=== PATIENT | female | born 1935 | race Caucasian/White ===

== ENCOUNTER → 2017-07-12 | Day surgery (SDC) | payer MEDICARE, OTHER ==
[~2017-07-12] MED LIST: ALPRAZolam 0.25 MG TAB PO STA; MORPHINE SULFATE 4 MG/ML SYRINGE IVP PRN
[2017-07-12 09:29] LABS: Mean Platelet Volume 7.6; Platelet Count 183 k/uL (150-450)
[2017-07-12 09:54] LABS: INR 1.1 (<1.2); Prothrombin Time 10.5 sec (9.0-12.0)
[2017-07-12 11:24] VITALS: RESP 18
[2017-07-12 14:13] VITALS: TEMP 97.8
--- NOTE | 2017-07-12 14:17 | US ---
EXAMINATION TYPE: US biopsy liver DATE OF EXAM: 07/12/2017 HISTORY: Liver mass. FINDINGS: Maximal barrier technique was utilized. The skin overlying a suitable path to the patient' s mass was localized with ultrasound and the overlying skin prepped and draped. Ultrasound was utili zed with sterile technique. Lidocaine was used for local anesthesia. A skin kevyn was made with a sc alpel. An 18-gauge needle was advanced under direct ultrasound guidance and core specimen obtained o f the mass. Specimen submitted in formalin to Pathology. Following the procedure, hemostasis achiev ed and the patient is discharged in stable condition without complication. IMPRESSION:STATUS POST ULTRASOUND GUIDED CORE BIOPSY OF right lobe liver MASS, PATHOLOGY IS PENDING. THIS PROCEDURE IS PERFORMED BY THE UNDERSIGNED.
[2017-07-12 15:11] VITALS: BP 129/84; PULSE 62
== END ==
LOC: RADPROMAIN 08:44
PROVIDERS: ATTEND Internal Medicine Gastroenterology
DX: K74.60 Unspecified cirrhosis of liver (principal)
CPT/HCPCS: 85049; 85610; 88313; 88342; 88307; 88341; 96374; 36415; 47000; 76942; J2270

== ENCOUNTER 2018-06-25 08:32 | Inpatient (IN) | payer MEDICARE, OTHER ==
--- NOTE | 2018-06-25 09:08 | ED ---
GI Bleed HPI - General Chief complaint: GI Bleed Stated complaint: GI BLEED Time Seen by Provider: 06/25/18 08:38 Source: patient, RN notes reviewed, old records reviewed Mode of arrival: EMS Limitations: no limitations - History of Present Illness Initial comments: Following and there is an 83-year-old female with a history of liver cancer presents emergency department today as a transfer from [facility]. Patient was initially seen at [facility] for dizziness and nausea and lightheadedness. Patient was found to have a GI bleed with a positive guaiac test and a low hemoglobin of 7.8. Patient has a history of CVA, hypertension as well. She has a loop recorder. At this time Patient has a 30 received 1 unit of blood. She denies any pain. She denies any hematemesis or known melena. Patient reports that she sees Dr. ventura leukemia a oncologist at [facility]. She reports that she is essentially very close to being done with her cancer treatment. She is supposed to do radiation therapy. - Related Data Home Medications Medication Instructions Recorded Confirmed Gabapentin [Neurontin] 200 mg PO BID 03/12/17 06/25/18 Lisinopril [Zestril] 20 mg PO HS 03/12/17 06/25/18 Omeprazole 20 mg PO DAILY 03/12/17 06/25/18 Orphenadrine [Norflex] 100 mg PO DAILY 03/12/17 06/25/18 hydrALAZINE HCL 10 mg PO BID 03/12/17 06/25/18 Aspirin EC [Ecotrin Low Dose] 81 mg PO DAILY 06/25/18 06/25/18 Atorvastatin [Lipitor] 40 mg PO HS 06/25/18 06/25/18 Chlorthalidone [Hygroton] 25 mg PO DAILY 06/25/18 06/25/18 Clopidogrel [Plavix] 75 mg PO DAILY 06/25/18 06/25/18 LORazepam [Ativan] 0.5 mg PO BID PRN 06/25/18 06/25/18 Ondansetron [Zofran] 4 mg PO Q6H PRN 06/25/18 06/25/18 amLODIPine [Norvasc] 5 mg PO DAILY 06/25/18 06/25/18 sitaGLIPtin [Januvia] 50 mg PO DAILY 06/25/18 06/25/18 Allergies Allergy/AdvReac Type Severity Reaction Status Date / Time Penicillins Allergy Mild Rash/Hives Verified 06/25/18 09:05 codeine AdvReac Intermediate Confusion Verified 06/25/18 09:05 Review of Systems ROS Statement: Those systems with pertinent positive or pertinent negative responses have been documented in the HPI. ROS Other: All systems not noted in ROS Statement are negative. Past Medical History Past Medical History: Diabetes Mellitus, GERD/Reflux, Hypertension Additional Past Medical History / Comment(s): Cyst in right kidney, kidney stones. 2 lesions on liver, cirrhosis, steatosis History of Any Multi-Drug Resistant Organisms: None Reported Past Surgical History: Appendectomy, Cholecystectomy, Hysterectomy, Orthopedic Surgery Additional Past Surgical History / Comment(s): Left knee surgery, liver biospy 04/02 Past Anesthesia/Blood Transfusion Reactions: No Reported Reaction Past Psychological History: No Psychological Hx Reported Smoking Status: Current every day smoker Past Drug Use History: None Reported - Past Family History Mother Family Medical History: Hypertension Father Family Medical History: COPD General Exam - General Exam Comments Initial Comments: A pleasant alert and oriented 83-year-old female. No significant distress. Limitations: no limitations General appearance: alert, in no apparent distress Head exam: Present: atraumatic, normocephalic, normal inspection Eye exam: Present: normal appearance, PERRL, EOMI. Absent: scleral icterus, conjunctival injection, periorbital swelling ENT exam: Present: normal exam, mucous membranes moist Neck exam: Present: normal inspection. Absent: tenderness, meningismus, lymphadenopathy Respiratory exam: Present: normal lung sounds bilaterally. Absent: respiratory distress, wheezes, rales, rhonchi, stridor Cardiovascular Exam: Present: regular rate, normal rhythm, normal heart sounds. Absent: systolic murmur, diastolic murmur, rubs, gallop, clicks GI/Abdominal exam: Present: soft, normal bowel sounds. Absent: distended, tenderness, guarding, rebound, rigid Rectal exam: Present: heme (+) stool, hemorrhoids (2 hemorrhoids.) Extremities exam: Present: normal inspection, full ROM, normal capillary refill. Absent: tenderness, pedal edema, joint swelling, calf tenderness Back exam: Present: normal inspection Neurological exam: Present: alert, oriented X3, CN II-XII intact Psychiatric exam: Present: normal affect, normal mood Skin exam: Present: warm, dry, intact, normal color. Absent: rash Course Vital Signs 06/25/18 06/25/18 08:50 09:50 Temperature 97.9 F 98.0 F Pulse Rate 85 81 Respiratory 18 18 Rate Blood Pressure 155/79 152/75 O2 Sat by Pulse 96 96 Oximetry Medical Decision Making - Medical Decision Making 83-year-old female presents as transfer from her [facility]. She complained of dizziness lightheadedness. She was found to be having symptomatic anemia. Her color is positive however she does have hemorrhoids. She denies any significant melena or hematochezia. She also has a history of liver cancer. She is complaining of any pain at this time. Her hemoglobin was 7.8. One unit of blood. She has no complaints no vomiting or no stools in the ER. Patient's case discussed with Dr. Issac Wagner discussed the case with Dr. Covington who except admission. Patient will have a repeat CBC. Disposition Clinical Impression: Anemia, GI bleed, Dizziness Disposition: ADMITTED IP TO THIS [facility] Condition: Good Instructions (If sedation given, give patient instructions): Gastrointestinal Bleeding (ED) Is patient prescribed a controlled substance at d/c from ED?: No Referrals: Ryley Styles MD [Primary Care Provider] - 1-2 days Time of Disposition: 12:27
[2018-06-25] MEDS ORDERED: HYDROmorphone 0.5 MG/0.5 ML SYRINGE IVP PRN (12:28)
[2018-06-25] MEDS ORDERED: HYDROmorphone 1 MG/ML 1 ML SYRINGE IVP PRN (12:28)
[2018-06-25] MEDS ORDERED: NALOXONE 0.4 MG/ML 1 ML VIAL IV PRN (12:28)
[2018-06-25 12:30] LABS: Anisocytosis Slight; Basophils % (A) 1 %; Eosinophils # (A) 0.1 k/uL (0-0.7); Eosinophils % (A) 3 %; HCT 27.1 % (34.0-46.0); HGB 8.1 gm/dL (11.4-16.0); Hypochromasia Marked; Lymphocytes # (A) 0.4 k/uL (1.0-4.8); Lymphocytes % (A) 14 %; MCH 23.7 pg (25.0-35.0); MCHC 29.7 g/dL (31.0-37.0); MCV 79.8 fL (80.0-100.0); Mean Platelet Volume 7.4; Monocytes # (A) 0.3 k/uL (0-1.0); Monocytes % (A) 9 %; Neutrophils % (A) 69 %; Platelet Count 232 k/uL (150-450); Poikilocytosis Slight; RDW 16.3 % (11.5-15.5); WBC 2.9 k/uL (3.8-10.6)
[2018-06-25] MEDS ORDERED: ONDANSETRON 4 MG TAB PO PRN (12:31)
[2018-06-25 12:58] LABS: Anion Gap 8 mmol/L; Blood Urea Nitrogen 10 mg/dL (7-17); Calcium 9.6 mg/dL (8.4-10.2); Carbon Dioxide 22 mmol/L (22-30); Chloride 111 mmol/L (98-107); Glucose 126 mg/dL (74-99); Potassium 4.1 mmol/L (3.5-5.1); Sodium 141 mmol/L (137-145)
[2018-06-25] MEDS: SODIUM CHLORIDE 0.9% 1,000 ML IV SCH (15:01)
[2018-06-25 15:24] VITALS: BMI 31.0
--- NOTE | 2018-06-25 17:03 | P.HPIM ---
History of Present Illness Chief Complaint: GI bleed Very pleasant 83-year-old female past medical history significant for liver cancer on treatment at [facility] comes in to the ER as a transfer from [facility]. Patient apparently presented to [facility] for dizziness and nausea. He said that she's been having dizziness and nausea for since February when the treatment was started but at this time she was having more episodes of dizziness. That's why she went to the [facility]. There are fecal occult blood test which was positive. Her hemoglobin was found to be 7.8 that is why she was transferred to [facility] for further urology management. Patient says that she is on aspirin and Plavix for history of CVA. She otherwise does not complain of any chest pain, racing heart, no cough no shortness of breath, no abdominal pain, no vomiting, no diarrhea constipation, no tingling numbness of his extremities, no itch or rash ER course-temperature 97.9 pulse 85 respiration 18 blood pressure 155/79 satting 96%. Patient had lab work done which showed WBC 2.9 hemoglobin 8.1 platelets 232 sodium 141 potassium 4.1 BUN 10 creatinine 0.67. Patient was admitted to the hospitalist service for further evaluation and management Review of Systems All systems: negative Past Medical History Past Medical History: Cancer, CVA/TIA, Diabetes Mellitus, GERD/Reflux, Hypertension Additional Past Medical History / Comment(s): Cyst in right kidney, kidney stones. 2 lesions on liver, cirrhosis, steatosis History of Any Multi-Drug Resistant Organisms: None Reported Past Surgical History: Appendectomy, Back Surgery, Cholecystectomy, Hysterectomy , Orthopedic Surgery, Pacemaker Additional Past Surgical History / Comment(s): Left knee surgery, liver biospy 04/02, loop recorder placed about one year ago. Past Anesthesia/Blood Transfusion Reactions: No Reported Reaction Type of Cardiac Device: Loop Device Placement Date:: 12/15/2017 Past Psychological History: No Psychological Hx Reported Smoking Status: Former smoker Additional Past Alcohol Use History / Comment(s): quit one year ago. Past Drug Use History: None Reported - Past Family History Mother History Unknown: Yes Family Medical History: Hypertension Father History Unknown: Yes Family Medical History: COPD Medications and Allergies Home Medications Medication Instructions Recorded Confirmed Type Gabapentin [Neurontin] 200 mg PO BID 03/12/17 06/25/18 History Lisinopril [Zestril] 20 mg PO HS 03/12/17 06/25/18 History Omeprazole 20 mg PO DAILY 03/12/17 06/25/18 History Orphenadrine [Norflex] 100 mg PO DAILY 03/12/17 06/25/18 History hydrALAZINE HCL 10 mg PO BID 03/12/17 06/25/18 History Aspirin EC [Ecotrin Low Dose] 81 mg PO DAILY 06/25/18 06/25/18 History Atorvastatin [Lipitor] 40 mg PO HS 06/25/18 06/25/18 History Chlorthalidone [Hygroton] 25 mg PO DAILY 06/25/18 06/25/18 History Clopidogrel [Plavix] 75 mg PO DAILY 06/25/18 06/25/18 History LORazepam [Ativan] 0.5 mg PO BID PRN 06/25/18 06/25/18 History Ondansetron [Zofran] 4 mg PO Q6H PRN 06/25/18 06/25/18 History amLODIPine [Norvasc] 5 mg PO DAILY 06/25/18 06/25/18 History sitaGLIPtin [Januvia] 50 mg PO DAILY 06/25/18 06/25/18 History Allergies Allergy/AdvReac Type Severity Reaction Status Date / Time Penicillins Allergy Mild Rash/Hives Verified 06/25/18 09:05 codeine AdvReac Intermediate Confusion Verified 06/25/18 09:05 Physical Exam Vitals: Vital Signs Temp Pulse Pulse Resp BP BP Pulse Ox 06/25/18 14:20 98.0 F 73 16 168/76 95 06/25/18 14:00 97.8 F 72 18 131/80 97 06/25/18 11:00 81 18 96 06/25/18 09:50 98.0 F 81 18 152/75 96 06/25/18 08:50 97.9 F 85 18 155/79 96 Intake and Output 06/25/18 06/25/18 06/25/18 06:59 14:59 22:59 Other: Weight 72.121 kg On exam, alert and oriented x3. HEENT: Conjunctivae normal. eyes normal. NECK: No JVD. No thyroid enlargement. No LNs CARDIOVASCULAR: S1, S2 positive RESPIRATION: Breath sounds diminished in the bases. No rhonchi or crackles. No bronchial breathing. ABDOMEN: Soft, nontender . No guarding. no masses palpable. No ascites, No hepatosplenomegaly.Bowel sounds heard. LEGS: No edema. no swelling NERVOUS SYSTEM: Cranial N 2-12 grossly normal. Moves all 4 limbs. No focal deficits. No sensory deficit. No signs of cerebellar dysfucntion. Skin: no ulcer no rash Joints: No active swelling. No inflammation. Lymphatic system. No LN neck axilla or groin. Results CBC & Chem 7: 06/25/18 12:16 06/25/18 12:16 Labs: Abnormal Lab Results - Last 24 Hours (Table) 06/25/18 06/25/18 Range/Units 12:16 12:16 WBC 2.9 L (3.8-10.6) k/uL RBC 3.40 L (3.80-5.40) m/uL Hgb 8.1 L (11.4-16.0) gm/dL Hct 27.1 L (34.0-46.0) % MCV 79.8 L (80.0-100.0) fL MCH 23.7 L (25.0-35.0) pg MCHC 29.7 L (31.0-37.0) g/dL RDW 16.3 H (11.5-15.5) % Lymphocytes # 0.4 L (1.0-4.8) k/uL Chloride 111 H (98-107) mmol/L Glucose 126 H (74-99) mg/dL Thrombosis Risk Factor Assmnt - Choose All That Apply Any of the Below Risk Factors Present?: Yes Each Factor Represents 1 point: Obesity (BMI >25) Each Risk Factor Represents 3 Points: Age 75 years or older Thrombosis Risk Factor Assessment Total Risk Factor Score: 4 Thrombosis Risk Factor Assessment Level: Moderate Risk Assessment and Plan Assessment: Assessment - Anemia hemoglobin is 8.1. We don't know the baseline as of now - GI bleed - Lightheadedness and dizziness due to above - History of hemorrhoids as per the patient - History of CVA on aspirin and Plavix - History of liver cancer - History of hypertension - History of hyperlipidemia - History of diabetes Plan - We'll admit the patient MedSurg with telemetry - Patient will be nothing by mouth after midnight - GI has been consulted - We'll hold on aspirin and Plavix for now - Hemoglobin check to 8 hours - She apparently got 1 unit of blood transfusion with transfusion his hemoglobin less than 7 - DVT and GI prophylaxis - We'll order for lab work in the morning - Expected length of stay more than 2 midnights - Patient is full code Time with Patient: Greater than 30
[2018-06-25 17:25] LABS: Glucose,Whole Blood 111 mg/dL (75-99)
[2018-06-25] MEDS: INSULIN ASPART (NovoLOG) 100 UNIT/ML VIAL SQ SCH ×2 (17:42→20:20)
[2018-06-25] MEDS: LISINOPRIL 20 MG TAB PO SCH (20:18)
[2018-06-25] MEDS: ATORVASTATIN 40 MG TAB PO SCH (20:18)
[2018-06-25] MEDS: PANTOPRAZOLE 40 MG/10 ML VIAL IV SCH (20:18)
[2018-06-25] MEDS: hydrALAZINE HCL 10 MG TAB PO SCH (20:18)
[2018-06-25] MEDS: GABAPENTIN 100 MG CAP PO SCH (20:20)
[2018-06-25] MEDS: LORazepam 0.5 MG TAB PO PRN (20:23)
[2018-06-25 20:35] LABS: Glucose,Whole Blood 129 mg/dL (75-99)
[2018-06-25 23:48] LABS: Hemoglobin A1C 6.3 % (4.0-6.0)
[2018-06-26] MEDS: SODIUM CHLORIDE 0.9% 1,000 ML IV SCH ×4 (02:51→21:55)
[2018-06-26 07:22] LABS: Glucose,Whole Blood 105 mg/dL (75-99)
[2018-06-26] MEDS: INSULIN ASPART (NovoLOG) 100 UNIT/ML VIAL SQ SCH ×4 (07:26→21:46)
[2018-06-26] MEDS: amLODIPine 5 MG TAB PO SCH (07:56)
[2018-06-26] MEDS: hydrALAZINE HCL 10 MG TAB PO SCH ×2 (07:56→21:55)
[2018-06-26] MEDS: PANTOPRAZOLE 40 MG/10 ML VIAL IV SCH ×2 (07:57→21:51)
[2018-06-26 08:09] LABS: Anisocytosis Slight; HCT 24.9 % (34.0-46.0); HGB 7.3 gm/dL (11.4-16.0); Hypochromasia Marked; MCH 23.7 pg (25.0-35.0); MCHC 29.3 g/dL (31.0-37.0); MCV 80.9 fL (80.0-100.0); Mean Platelet Volume 8.1; Platelet Count 196 k/uL (150-450); Poikilocytosis Slight; RBC 3.08 m/uL (3.80-5.40); RDW 16.5 % (11.5-15.5); WBC 2.9 k/uL (3.8-10.6)
[2018-06-26] MEDS ORDERED: NON-FORMULARY DRUG (Omeprazole [Omeprazole] 20 MG) PO SCH (09:00)
[2018-06-26] MEDS: CYCLOBENZAPRINE 10 MG TAB PO SCH (09:06)
[2018-06-26] MEDS: CHLORTHALIDONE 25 MG TAB PO SCH (09:06)
[2018-06-26] MEDS: LINAGLIPTIN 5 MG TABLET PO SCH (09:06)
[2018-06-26] MEDS: GABAPENTIN 100 MG CAP PO SCH ×2 (09:06→21:50)
--- NOTE | 2018-06-26 11:18 | CONS ---
CONSULTATION DATE OF SERVICE: June 26, 2018. REASON FOR CONSULTATION: Symptomatic anemia. HISTORY OF PRESENT ILLNESS: The patient is an 83-year-old pleasant white female who is known to me from her previous office visits. She has history of fatty liver disease with cirrhosis of the liver complicated by Hepatocellular carcinoma which was diagnosed in January of 2018. She was sent to [facility] and underwent embolization treatment in February of 2018, and she is scheduled to see them next week. In the meantime, she has been having extreme fatigue, weakness and dizzy spells and hence went to the emergency room at [facility], was noted to have a hemoglobin of 7.8 g/dL and subsequently transferred here for further management. She denies any abdominal pain. She reports no nausea, vomiting. She denies any rectal bleeding or melena. She does have occasional hemorrhoids that bleed very infrequently. Her last colonoscopy was done at [facility] about 5 years ago. She denies any peptic ulcer disease. No recent NSAID use. PAST MEDICAL HISTORY: Significant for diabetes mellitus, hypertension, hyperlipidemia, cirrhosis of the liver complicated with hepatocellular carcinoma diagnosed in January of 2018, status post embolization at [facility] in February. PAST SURGICAL HISTORY: Back surgery, appendectomy, cholecystectomy, hysterectomy, and pacemaker implantation. MEDICATIONS: At Neurontin, Zestril, omeprazole, Norflex, Excedrin, Lipitor, Plavix, Ativan, Zofran, Norvasc and Januvia. ALLERGIES TO: PENICILLIN AND CODEINE. SOCIAL HISTORY: Former smoker. No alcohol use. FAMILY HISTORY: Mother has hypertension and father COPD. REVIEW OF SYSTEMS: CARDIOPULMONARY: No chest pain or shortness of breath. Genitourinary: No dysuria or hematuria. Musculoskeletal: Unremarkable. Skin: Unremarkable. Endocrine: Unremarkable. Psychiatric: Unremarkable. Neurological: Unremarkable. ENT/Vision: Unremarkable. Constitutional: Weakness and tiredness. No fever, chills, night sweats. PHYSICAL EXAMINATION: She appears comfortable. No apparent distress. VITAL SIGNS: Stable. Blood pressure is 146/65, pulse is 71, temperature 98.2. HEENT: Examination unremarkable. Conjunctivae pink. Sclerae anicteric. Oral cavity no lesions. Neck no jugular venous distention or lymph node enlargement. Chest was clear to auscultation. HEART: Regular rate and rhythm. ABDOMEN: Soft. Bowel sounds are positive. No organomegaly. Extremities: No pedal edema. Skin no rashes. NEUROLOGIC: Alert and oriented x3. No focal deficits. LABS: From today hemoglobin 8.1, WBC 2.9, platelets 232. AST, ALT, were not done. Basic metabolic panel is within normal limits. Repeat hemoglobin from today 7.3, WBC 2.9, platelets are 186. IMPRESSION: 1. This is a lady who presents with severe symptomatic anemia with mild microcytosis, most likely related to occult gastrointestinal blood loss. Stool Hemoccult was positive. Clinically no evidence of active ongoing bleeding. No history of peptic ulcer disease or recent NSAID use. Most likely dealing with occult gastrointestinal blood loss. 2. Cirrhosis of the liver related to fatty liver disease complicated by hepatocellular carcinoma diagnosed last year, status post embolization therapy at [facility] and scheduled to follow up with them next week. RECOMMENDATION: 1. Clear liquid diet. 2. We will proceed with an EGD and colonoscopy tomorrow. 3. The patient understands risks, benefits, and complications of the procedure. 4. Repeat CBC tomorrow. 5. We will follow her closely with you during the hospital stay. Thank you for this consultation. MMODL / IJN: [id number] /
[2018-06-26 11:46] LABS: Glucose,Whole Blood 114 mg/dL (75-99)
--- NOTE | 2018-06-26 12:47 | P.PN ---
Subjective Patient says that she's feeling better today She is no more lightheaded or dizzy No chest pain or racing heart Objective - Vital Signs Vital signs: Vital Signs Temp 97.8 F 06/26/18 07:19 Pulse 70 06/26/18 07:19 Resp 16 06/26/18 08:00 BP 146/62 06/26/18 07:19 Pulse Ox 97 06/26/18 07:19 Intake & Output 06/25/18 06/26/18 06/26/18 18:59 06:59 18:59 Intake Total 325 Balance 325 Weight 72.121 kg Intake: Oral 325 Other: Voiding Method Toilet Toilet # Voids 3 1 # Bowel Movements 1 - Exam On exam, alert and oriented x3. HEENT: Conjunctivae normal. eyes normal. NECK: No JVD. No thyroid enlargement. No LNs CARDIOVASCULAR: S1, S2 positive RESPIRATION: Breath sounds diminished in the bases. No rhonchi or crackles. No bronchial breathing. ABDOMEN: Soft, nontender . No guarding. no masses palpable. No ascites, No hepatosplenomegaly.Bowel sounds heard. LEGS: No edema. no swelling NERVOUS SYSTEM: Cranial N 2-12 grossly normal. Moves all 4 limbs. No focal deficits. No sensory deficit. No signs of cerebellar dysfucntion. Skin: no ulcer no rash - Labs CBC & Chem 7: 06/26/18 07:36 06/25/18 12:16 Labs: Abnormal Lab Results - Last 24 Hours (Table) 06/25/18 06/25/18 06/25/18 Range/Units 12:16 12:16 17:09 WBC (3.8-10.6) k/uL RBC (3.80-5.40) m/uL Hgb (11.4-16.0) gm/dL Hct (34.0-46.0) % MCH (25.0-35.0) pg MCHC (31.0-37.0) g/dL RDW (11.5-15.5) % Chloride 111 H (98-107) mmol/L Glucose 126 H (74-99) mg/dL POC Glucose (mg/dL) 111 H (75-99) mg/dL Hemoglobin A1c 6.3 H (4.0-6.0) % 06/25/18 06/26/18 06/26/18 Range/Units 20:20 07:18 07:36 WBC 2.9 L (3.8-10.6) k/uL RBC 3.08 L (3.80-5.40) m/uL Hgb 7.3 L (11.4-16.0) gm/dL Hct 24.9 L (34.0-46.0) % MCH 23.7 L (25.0-35.0) pg MCHC 29.3 L (31.0-37.0) g/dL RDW 16.5 H (11.5-15.5) % Chloride (98-107) mmol/L Glucose (74-99) mg/dL POC Glucose (mg/dL) 129 H 105 H (75-99) mg/dL Hemoglobin A1c (4.0-6.0) % 06/26/18 Range/Units 11:41 WBC (3.8-10.6) k/uL RBC (3.80-5.40) m/uL Hgb (11.4-16.0) gm/dL Hct (34.0-46.0) % MCH (25.0-35.0) pg MCHC (31.0-37.0) g/dL RDW (11.5-15.5) % Chloride (98-107) mmol/L Glucose (74-99) mg/dL POC Glucose (mg/dL) 114 H (75-99) mg/dL Hemoglobin A1c (4.0-6.0) % Assessment and Plan Assessment: Assessment - Anemia hemoglobin is 8.1. We don't know the baseline as of now - GI bleed - Lightheadedness and dizziness due to above - History of hemorrhoids as per the patient - History of CVA on aspirin and Plavix - History of liver cancer - History of hypertension - History of hyperlipidemia - History of diabetes Plan - Patient seen by GI, patient the recommendations - We'll possibly be scoped tomorrow - NPo after midnight - Hemoglobin is 7.3 this morning. We will monitor hemoglobin and transfuse if less than 7 - Continue rest of the medications. - Continue holding aspirin and Plavix Time with Patient: Greater than 30
[2018-06-26 14:30] LABS: Anisocytosis Slight; HCT 25.4 % (34.0-46.0); HGB 7.5 gm/dL (11.4-16.0); Hypochromasia Marked; MCH 24.1 pg (25.0-35.0); MCHC 29.6 g/dL (31.0-37.0); MCV 81.3 fL (80.0-100.0); Mean Platelet Volume 8.2; Platelet Count 188 k/uL (150-450); Poikilocytosis Slight; RBC 3.12 m/uL (3.80-5.40); RDW 16.4 % (11.5-15.5); WBC 2.9 k/uL (3.8-10.6)
[2018-06-26] MEDS ORDERED: PEG 3350-NA SULF,BICARB,CL/KCL 4,000 ML BOTTLE PO ONE (15:00)
[2018-06-26 16:58] LABS: Glucose,Whole Blood 115 mg/dL (75-99)
[2018-06-26 20:50] LABS: Glucose,Whole Blood 140 mg/dL (75-99)
[2018-06-26] MEDS: ATORVASTATIN 40 MG TAB PO SCH (21:50)
[2018-06-26] MEDS: LORazepam 0.5 MG TAB PO PRN (21:52)
[2018-06-26] MEDS: LISINOPRIL 20 MG TAB PO SCH (21:55)
[2018-06-26 22:33] LABS: Anisocytosis Slight; HCT 26.1 % (34.0-46.0); HGB 8.1 gm/dL (11.4-16.0); Hypochromasia Marked; MCH 25.3 pg (25.0-35.0); MCHC 30.9 g/dL (31.0-37.0); MCV 81.8 fL (80.0-100.0); Platelet Count 213 k/uL (150-450); Poikilocytosis Slight; RDW 16.1 % (11.5-15.5)
[2018-06-27 07:21] LABS: Glucose,Whole Blood 101 mg/dL (75-99)
[2018-06-27] MEDS: INSULIN ASPART (NovoLOG) 100 UNIT/ML VIAL SQ SCH ×4 (09:36→21:10)
[2018-06-27 10:01] LABS: Anisocytosis Slight; Hypochromasia Marked; MCH 24.5 pg (25.0-35.0); MCHC 30.6 g/dL (31.0-37.0); MCV 80.2 fL (80.0-100.0); Mean Platelet Volume 6.9; Platelet Count 199 k/uL (150-450); Poikilocytosis Slight; RBC 3.25 m/uL (3.80-5.40); RDW 16.6 % (11.5-15.5); WBC 2.5 k/uL (3.8-10.6)
[2018-06-27 12:31] LABS: Glucose,Whole Blood 89 mg/dL (75-99)
[2018-06-27] MEDS ORDERED: PROPOFOL 10 MG/ML 20 ML VIAL IV ONE (12:39)
[2018-06-27] MEDS ORDERED: IV FLUID CONTINUATION 600 ML IV ONE (12:41)
--- NOTE | 2018-06-27 13:31 | P.PN ---
Subjective This is a pleasant 83 years old female with past medical history of CVA/TIA, diabetes mellitus, GERD, hypertension. She presents because of dizziness and she is about to fall down and nausea without vomiting. Patient admitted with diagnosis of possible GI bleed, hemoglobin was low side 7.3-8.1. FOBT was positive at her original hospital before the transfer from [facility]. Patient currently has resolved dizziness and nausea, after she received treatment with Zofran and IV fluids. Patient is planned to have EGD and colonoscopy today. However patient denies any other symptoms. No chest pain or dyspnea. No abdominal pain or nausea vomiting. Her last bowel movement was about 2 days ago was the total amount of stool which was still does , however today she has loose bowel movements secondary to the GI preparation for her scope. No abdominal pain Objective - Vital Signs Vital signs: Vital Signs Temp 98.8 F 06/27/18 07:18 Pulse 68 06/27/18 07:18 Resp 16 06/27/18 07:18 BP 129/55 06/27/18 07:18 Pulse Ox 95 06/27/18 07:18 Intake & Output 06/26/18 06/27/18 06/27/18 18:59 06:59 18:59 Other: Voiding Method Toilet # Voids 3 2 # Bowel Movements 2 - Exam GENERAL: The patient is alert and oriented x3, not in any acute distress. Well developed, well nourished. HEENT: Pupils are round and equally reacting to light. EOMI. No scleral icterus. No conjunctival pallor. Normocephalic, atraumatic. No pharyngeal erythema. No thyromegaly. CARDIOVASCULAR: S1 and S2 present. No murmurs, rubs, or gallops. PULMONARY: Chest is clear to auscultation, no wheezing or crackles. ABDOMEN: Soft, nontender, nondistended, normoactive bowel sounds. No palpable organomegaly. MUSCULOSKELETAL: No joint swelling or deformity. EXTREMITIES: No cyanosis, clubbing, or pedal edema. NEUROLOGICAL: Gross neurological examination did not reveal any focal deficits. SKIN: No rashes. - Labs CBC & Chem 7: 06/27/18 09:27 06/25/18 12:16 Labs: Abnormal Lab Results - Last 24 Hours (Table) 06/26/18 06/26/18 06/26/18 Range/Units 14:08 16:56 20:48 WBC 2.9 L (3.8-10.6) k/uL RBC 3.12 L (3.80-5.40) m/uL Hgb 7.5 L (11.4-16.0) gm/dL Hct 25.4 L (34.0-46.0) % MCH 24.1 L (25.0-35.0) pg MCHC 29.6 L (31.0-37.0) g/dL RDW 16.4 H (11.5-15.5) % POC Glucose (mg/dL) 115 H 140 H (75-99) mg/dL 06/26/18 06/27/18 06/27/18 Range/Units 22:10 07:18 09:27 WBC 3.0 L 2.5 L (3.8-10.6) k/uL RBC 3.20 L 3.25 L (3.80-5.40) m/uL Hgb 8.1 L 8.0 L (11.4-16.0) gm/dL Hct 26.1 L 26.0 L (34.0-46.0) % MCH 24.5 L (25.0-35.0) pg MCHC 30.9 L 30.6 L (31.0-37.0) g/dL RDW 16.1 H 16.6 H (11.5-15.5) % POC Glucose (mg/dL) 101 H (75-99) mg/dL Assessment and Plan Assessment: Anemia, Low hemoglobin with positive FOBT, rule out GI bleed History of hemorrhoids Presyncope, mostly related to dehydration Improved with IV hydration Dehydration improved Plan: This is a pleasant 83 years old female presents with possible GI bleed. Patient is scheduled for EGD and colonoscopy by GI team. Labs and medication were reviewed.. Continue same treatment. Continue with symptomatic treatment. Resume home medication. Monitor lytes and vitals. DVT and GI prophylaxis. Further recommendations of the clinical course of the patient DVT prophylaxis: no heparin, and in view of possible GI bleed. Continue with mechanical prophylaxis GI Prophylaxis: Protonix twice a day PT/OT: Pending Prognosis is guarded
--- NOTE | 2018-06-27 13:55 | P.PCN ---
Date of Procedure: 06/27/18 Description of Procedure: Brief history: Patient is a pleasant 83-year-old female with a known medical history of [place]ff[place] cirrhosis complicated by hepatocellular carcinoma for which she was diagnosed in January 2018. She presented to the hospital with complaints of extreme fatigue, weakness and dizzy spells. She was found to have a hemoglobin of 7.8 on presentation. She denied any abdominal pain, nausea or vomiting. She denied any rectal bleeding or melena. She does report that she did have 1 episode of black tarry stools approximately 6 weeks ago, but has had no further episodes. She reports her last colonoscopy was proximally 5 years ago. She is currently on Plavix therapy for treatment of CVA/TIA in the past and has only been off of this medication for 48 hours. Procedure performed: Esophagogastroduodenoscopy with argon plasma coagulation ablation of a AVM in the duodenum Colonoscopy Estimated blood loss: Minimal. Preoperative diagnosis: Anesthesia: MAC Procedure: After informed consent was obtained from the patient was brought into the endoscopy unit and IV sedation was administered by anesthesia under continuous monitoring. Initially upper endoscopy was done. The Olympus GF 10 video endoscope was inserted inserted into the mouth and esophagus intubated without any difficulty and was gradually advanced into the stomach and duodenum and carefully examined. 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 The scope was then withdrawn into the stomach adequately insufflated with air and upon careful examination the antrum and body, cardia and fundus appeared normal. The scope was then withdrawn into the esophagus. A small hiatal hernia was noted. The GE junction was located at 38 cm to the incisors. It appeared regular with no erythema erosions or ulcerations. Rest of the esophagus appeared normal. Patient tolerated the procedure well. At this time the patient continued to remain sedation. Initial digital rectal examination was normal. Olympus CF 190 video colonoscope was then inserted into the rectum and gradually advanced to the cecum without any difficulty. Careful examination was performed as the scope was gradually being withdrawn. The prep was good The cecum, ascending colon, transverse colon, descending colon, sigmoid colon and rectum appeared normal. A few polyps were noted in the ascending colon, transverse colon and descending colon, these were subcentimeter and nonbleeding, and not removed due to the patient's recent antiplatelet therapy with both aspirin and Plavix taken 48 hours ago. Retroflexion was performed in the rectum and no lesions were noted, mild internal hemorrhoids were seen. Patient tolerated the procedure well. Impression: 1. 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 2. Small hiatal hernia. 3. Colonic polyps, not removed secondary to Plavix therapy. Internal hemorrhoids. No active bleeding or pathology to explain anemia on colonoscopy. Recommendations: Findings of this examination were discussed with the patient. Okay for diet, monitor hemoglobin and hematocrit. Patient will need repeat colonoscopy in 3-6 months for polypectomy, which was not performed due to recent Plavix therapy. Follow up with gastroenterology one to 2 weeks after discharge.
[2018-06-27] MEDS: GABAPENTIN 100 MG CAP PO SCH ×2 (14:32→20:26)
[2018-06-27] MEDS: hydrALAZINE HCL 10 MG TAB PO SCH ×3 (14:33→21:10)
[2018-06-27] MEDS: PANTOPRAZOLE 40 MG/10 ML VIAL IV SCH ×2 (14:33→20:27)
[2018-06-27] MEDS: SODIUM CHLORIDE 0.9% 1,000 ML IV SCH (14:33)
[2018-06-27] MEDS: CYCLOBENZAPRINE 10 MG TAB PO SCH (14:36)
[2018-06-27] MEDS: CHLORTHALIDONE 25 MG TAB PO SCH (14:37)
[2018-06-27] MEDS: LINAGLIPTIN 5 MG TABLET PO SCH (14:37)
[2018-06-27] MEDS: amLODIPine 5 MG TAB PO SCH (14:37)
[2018-06-27 16:58] LABS: Glucose,Whole Blood 100 mg/dL (75-99)
[2018-06-27] MEDS: ATORVASTATIN 40 MG TAB PO SCH (20:26)
[2018-06-27] MEDS: LISINOPRIL 20 MG TAB PO SCH (20:27)
[2018-06-27 20:47] LABS: Glucose,Whole Blood 197 mg/dL (75-99)
[2018-06-27] MEDS: LORazepam 0.5 MG TAB PO PRN (21:10)
[2018-06-28] MEDS: SODIUM CHLORIDE 0.9% 1,000 ML IV SCH (06:25)
[2018-06-28] MEDS: INSULIN ASPART (NovoLOG) 100 UNIT/ML VIAL SQ SCH ×2 (07:22→11:56)
[2018-06-28 07:50] LABS: Glucose,Whole Blood 118 mg/dL (75-99)
[2018-06-28 08:01] VITALS: BP 141/55; PULSE 77; RESP 20; TEMP 98.8
[2018-06-28] MEDS: CYCLOBENZAPRINE 10 MG TAB PO SCH (08:09)
[2018-06-28] MEDS: CHLORTHALIDONE 25 MG TAB PO SCH (08:09)
[2018-06-28] MEDS: amLODIPine 5 MG TAB PO SCH (08:09)
[2018-06-28] MEDS: GABAPENTIN 100 MG CAP PO SCH (08:09)
[2018-06-28] MEDS: LINAGLIPTIN 5 MG TABLET PO SCH (08:09)
[2018-06-28] MEDS: PANTOPRAZOLE 40 MG/10 ML VIAL IV SCH (08:09)
[2018-06-28] MEDS: hydrALAZINE HCL 10 MG TAB PO SCH (08:09)
[2018-06-28 09:56] LABS: Anisocytosis Slight; Basophils % (A) 1 %; Eosinophils # (A) 0.1 k/uL (0-0.7); Eosinophils % (A) 3 %; HCT 26.1 % (34.0-46.0); HGB 8.1 gm/dL (11.4-16.0); Hypochromasia Marked; Lymphocytes # (A) 0.4 k/uL (1.0-4.8); Lymphocytes % (A) 11 %; MCH 25.6 pg (25.0-35.0); MCHC 31.2 g/dL (31.0-37.0); MCV 82.2 fL (80.0-100.0); Mean Platelet Volume 7.2; Monocytes # (A) 0.5 k/uL (0-1.0); Monocytes % (A) 15 %; Neutrophils # (A) 2.2 k/uL (1.3-7.7); Neutrophils % (A) 64 %; Platelet Count 197 k/uL (150-450); Poikilocytosis Slight; RBC 3.17 m/uL (3.80-5.40); RDW 16.6 % (11.5-15.5); WBC 3.4 k/uL (3.8-10.6)
[2018-06-28 12:06] LABS: Glucose,Whole Blood 136 mg/dL (75-99)
--- NOTE | 2018-06-28 13:42 | P.DS ---
Providers Date of admission: 06/25/18 11:43 Attending physician: Igor Mendoza MD Consults: 06/25/18 12:28 Consult Physician Stat Consulting Provider: Yumi Amaya Consult Reason/Comments: Anemia, GI bleed,Liver CA Do you want consulting provider notified?: Yes Primary care physician: Ryley Styles [facility] Course: This is a pleasant 83 years old female with past medical history of CVA/TIA, diabetes mellitus, GERD, hypertension. She presents because of dizziness and she is about to fall down and nausea without vomiting. Patient admitted with diagnosis of possible GI bleed, hemoglobin was low side 7.3-8.1. FOBT was positive at her original hospital before she got transferred from [facility]. Patient currently has resolved dizziness and nausea, after she received treatment with Zofran and IV fluids. 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 Patient eventually abdominal pain is completely resolved for more than 48 hours with no more nausea vomiting. Patient tolerating diet well. Last bowel movement was yesterday. She is passing gases. Patient was asking from yesterday to be discharged. Patient was cleared for discharge by gastroenterology team Problems and management plan was discussed with the patient and she verbalized understanding and acceptance Patient was found stable and can be discharged home however she needs follow-up as an outpatient. Patient agrees with the appointments made with the GI clinic and she stated she will follow up with it and she agrees with this timing Gen: patient is a AAOx3, no distress CVS: S1-S2, RRR, no murmur Lungs: B/L CTA, no wheezing Abdomen: soft, no distention, no tenderness, positive bowel sounds Extremity: no leg edema or induration Time spent more than 35 minutes Patient Condition at Discharge: Good Plan - Discharge Summary Discharge Rx Participant: No New Discharge Prescriptions: New Pantoprazole Sodium [Protonix] 40 mg PO BID #60 tablet. Continue Orphenadrine [Norflex] 100 mg PO DAILY Omeprazole 20 mg PO DAILY Lisinopril [Zestril] 20 mg PO HS hydrALAZINE HCL 10 mg PO BID Gabapentin [Neurontin] 200 mg PO BID Clopidogrel [Plavix] 75 mg PO DAILY Aspirin EC [Ecotrin Low Dose] 81 mg PO DAILY LORazepam [Ativan] 0.5 mg PO BID PRN PRN Reason: Anxiety Chlorthalidone [Hygroton] 25 mg PO DAILY Atorvastatin [Lipitor] 40 mg PO HS sitaGLIPtin [Januvia] 50 mg PO DAILY amLODIPine [Norvasc] 5 mg PO DAILY Ondansetron [Zofran] 4 mg PO Q6H PRN PRN Reason: Nausea Discharge Medication List Gabapentin [Neurontin] 200 mg PO BID 03/12/17 [History] Lisinopril [Zestril] 20 mg PO HS 03/12/17 [History] Omeprazole 20 mg PO DAILY 03/12/17 [History] Orphenadrine [Norflex] 100 mg PO DAILY 03/12/17 [History] hydrALAZINE HCL 10 mg PO BID 03/12/17 [History] Aspirin EC [Ecotrin Low Dose] 81 mg PO DAILY 06/25/18 [History] Atorvastatin [Lipitor] 40 mg PO HS 06/25/18 [History] Chlorthalidone [Hygroton] 25 mg PO DAILY 06/25/18 [History] Clopidogrel [Plavix] 75 mg PO DAILY 06/25/18 [History] LORazepam [Ativan] 0.5 mg PO BID PRN 06/25/18 [History] Ondansetron [Zofran] 4 mg PO Q6H PRN 06/25/18 [History] amLODIPine [Norvasc] 5 mg PO DAILY 06/25/18 [History] sitaGLIPtin [Januvia] 50 mg PO DAILY 06/25/18 [History] Pantoprazole Sodium [Protonix] 40 mg PO BID #60 tablet. 06/28/18 [Rx] Follow up Appointment(s)/Referral(s): Ryley Styles MD [Primary Care Provider] - 1-2 days Yumi Amaya MD [STAFF PHYSICIAN] - 07/14/18 3:45 pm (at [facility]) Patient Instructions/Handouts: Gastrointestinal Bleeding (ED) Activity/Diet/Wound Care/Special Instructions: cardiac diet activity as tolerated Discharge Disposition: HOME SELF-CARE
== END 2018-06-28 14:31 | disposition home or self-care (01) | DRG 378 ==
LOC: EC 08:32 → 4MS4W 11:43
PROVIDERS: ADMIT Internal Medicine; ATTEND Internal Medicine
PROC: 0D598ZZ Destruction of Duodenum, Via Natural or Artificial Opening Endoscopic (ICD-10-PCS; principal; 2018-06-27 08:15)
PROC: 0DJD8ZZ Inspection of Lower Intestinal Tract, Via Natural or Artificial Opening Endoscopic (ICD-10-PCS; principal; 2018-06-27 08:15)
DX: K92.2 Gastrointestinal hemorrhage, unspecified (principal); C22.0 Liver cell carcinoma; N28.1 Cyst of kidney, acquired; D64.9 Anemia, unspecified; E11.9 Type 2 diabetes mellitus without complications; E78.5 Hyperlipidemia, unspecified; E86.0 Dehydration; K75.81 Nonalcoholic steatohepatitis (NASH); K74.60 Unspecified cirrhosis of liver; K31.819 Angiodysplasia of stomach and duodenum without bleeding; K63.5 Polyp of colon; K44.9 Diaphragmatic hernia without obstruction or gangrene; K21.9 Gastro-esophageal reflux disease without esophagitis; K64.8 Other hemorrhoids; Z79.82 Long term (current) use of aspirin; I10 Essential (primary) hypertension; Z79.02 Long term (current) use of antithrombotics/antiplatelets; Z79.84 Long term (current) use of oral hypoglycemic drugs; Z79.899 Other long term (current) drug therapy; Z86.73 Personal history of transient ischemic attack (TIA), and cerebral infarction without residual deficits; Z87.891 Personal history of nicotine dependence; Z87.442 Personal history of urinary calculi; Z90.710 Acquired absence of both cervix and uterus; Z90.49 Acquired absence of other specified parts of digestive tract; Z88.5 Allergy status to narcotic agent; Z88.0 Allergy status to penicillin; Z82.49 Family history of ischemic heart disease and other diseases of the circulatory system; Z82.5 Family history of asthma and other chronic lower respiratory diseases
CPT/HCPCS: 36415; 43270; 45378; 80048; 83036; 85025; 85027; 93005; 99285

== ENCOUNTER 2018-09-02 19:48 | Inpatient (IN) | payer MEDICARE, OTHER ==
--- NOTE | 2018-09-02 19:54 | ED ---
Weakness HPI - General Stated complaint: Weakness Source: patient, EMS, RN notes reviewed, old records reviewed Mode of arrival: EMS Limitations: no limitations - History of Present Illness Initial comments: This is an 9-year-old female the ER for evaluation arriving in transfer from [facility] for evaluation of GI bleed. Patient also did be anemic. Patient does feel weak. Currently denying any blood thinner usage. No abdominal pain. No nausea vomiting of blood. MD Complaint: generalized weakness (GI bleed and anemia) -: unknown Location: generalized Severity: moderate Severity scale (1-10): 5 Quality: aching Improves with: none Worsens with: none Context: history of similar Associated Symptoms: dark stools - Related Data Home Medications Medication Instructions Recorded Confirmed Gabapentin [Neurontin] 200 mg PO BID 03/12/17 09/02/18 hydrALAZINE HCL 10 mg PO BID 03/12/17 09/02/18 Aspirin EC [Ecotrin Low Dose] 81 mg PO DAILY 06/25/18 09/02/18 Atorvastatin [Lipitor] 40 mg PO HS 06/25/18 09/02/18 Chlorthalidone [Hygroton] 25 mg PO DAILY 06/25/18 09/02/18 Clopidogrel [Plavix] 75 mg PO DAILY 06/25/18 09/02/18 LORazepam [Ativan] 0.5 mg PO BID PRN 06/25/18 09/02/18 Ondansetron [Zofran] 4 mg PO Q6H PRN 06/25/18 09/02/18 sitaGLIPtin [Januvia] 50 mg PO DAILY 06/25/18 09/02/18 Ferrous Sulfate [Iron] 325 mg PO DAILY 09/02/18 09/02/18 Lisinopril 40 mg PO DAILY 09/02/18 09/02/18 Potassium Chloride ER [K-Dur 20] 20 meq PO DAILY 09/02/18 09/02/18 Ranitidine HCl [Zantac] 150 mg PO BID 09/02/18 09/02/18 amLODIPine [Norvasc] 10 mg PO DAILY 09/02/18 09/02/18 Allergies Allergy/AdvReac Type Severity Reaction Status Date / Time Penicillins Allergy Mild Rash/Hives Verified 09/02/18 20:24 codeine AdvReac Intermediate Confusion Verified 09/02/18 20:24 Review of Systems ROS Statement: Those systems with pertinent positive or pertinent negative responses have been documented in the HPI. ROS Other: All systems not noted in ROS Statement are negative. Past Medical History Past Medical History: Cancer, CVA/TIA, Diabetes Mellitus, GERD/Reflux, Hypertension Additional Past Medical History / Comment(s): Cyst in right kidney, kidney stones. 2 lesions on liver, cirrhosis, steatosis History of Any Multi-Drug Resistant Organisms: None Reported Past Surgical History: Appendectomy, Back Surgery, Cholecystectomy, Hysterectomy, Orthopedic Surgery, Pacemaker Additional Past Surgical History / Comment(s): Left knee surgery, liver biospy 04/02, loop recorder placed about one year ago. Past Anesthesia/Blood Transfusion Reactions: No Reported Reaction Type of Cardiac Device: Loop Device Placement Date:: 12/15/2017 Past Psychological History: No Psychological Hx Reported Smoking Status: Former smoker Past Drug Use History: None Reported - Past Family History Mother History Unknown: Yes Family Medical History: Hypertension Father History Unknown: Yes Family Medical History: COPD General Exam Limitations: no limitations General appearance: alert, in no apparent distress Head exam: Present: atraumatic, normocephalic, normal inspection Eye exam: Present: normal appearance, PERRL, EOMI. Absent: scleral icterus, conjunctival injection, periorbital swelling ENT exam: Present: normal exam, mucous membranes moist Neck exam: Present: normal inspection. Absent: tenderness, meningismus, lymphadenopathy Respiratory exam: Present: normal lung sounds bilaterally. Absent: respiratory distress, wheezes, rales, rhonchi, stridor Cardiovascular Exam: Present: regular rate, normal rhythm, normal heart sounds. Absent: systolic murmur, diastolic murmur, rubs, gallop, clicks GI/Abdominal exam: Present: soft, normal bowel sounds. Absent: distended, tenderness, guarding, rebound, rigid Extremities exam: Present: normal inspection, full ROM, normal capillary refill. Absent: tenderness, pedal edema, joint swelling, calf tenderness Back exam: Present: normal inspection Neurological exam: Present: alert, oriented X3, CN II-XII intact Psychiatric exam: Present: normal affect, normal mood Skin exam: Present: warm, dry, intact, normal color. Absent: rash Course Vital Signs 09/02/18 09/02/18 09/02/18 19:50 20:10 20:20 Temperature 99.2 F Pulse Rate 96 88 90 Pulse Rate [ Pulse Oximetery ] Respiratory 16 16 16 Rate Blood Pressure 116/85 131/63 131/63 Blood Pressure [Left Arm] O2 Sat by Pulse 98 97 97 Oximetry 09/02/18 09/02/18 09/02/18 20:30 20:50 21:00 Temperature Pulse Rate 87 Pulse Rate [ Pulse Oximetery ] Respiratory 16 Rate Blood Pressure 131/63 Blood Pressure [Left Arm] O2 Sat by Pulse 97 97 99 Oximetry 09/02/18 21:11 Temperature 98.3 F Pulse Rate Pulse Rate [ 91 Pulse Oximetery ] Respiratory 16 Rate Blood Pressure Blood Pressure 136/62 [Left Arm] O2 Sat by Pulse Oximetry - Reevaluation(s) Reevaluation #1: Transferring paperwork is reviewed as well as medical record Patient is on Plavix, no reversible blood thinners She'll be transfused secondary low hemoglobin, hemodynamically stable EKG Findings - EKG Comments: EKG Findings:: EKG shows A. fib rate of 94, QRS 86, QTc 482 Medical Decision Making - Medical Decision Making 83 female accepted in transfer for positive GI bleed. Patient be admitted for onitoring of hemoglobin monitoring of hemodynamic status. - Lab Data Result diagrams: 09/06/18 07:08 09/06/18 07:08 Lab Results 09/02/18 09/02/18 09/02/18 Range/Units 20:00 20:02 20:02 WBC 5.7 (3.8-10.6) k/uL RBC 2.82 L (3.80-5.40) m/uL Hgb 6.8 L* (11.4-16.0) gm/dL Hct 22.6 L (34.0-46.0) % MCV 80.3 (80.0-100.0) fL MCH 24.1 L (25.0-35.0) pg MCHC 30.1 L (31.0-37.0) g/dL RDW 20.8 H (11.5-15.5) % Plt Count 242 (150-450) k/uL Neutrophils % 74 % Lymphocytes % 15 % Monocytes % 7 % Eosinophils % 1 % Basophils % 1 % Neutrophils # 4.2 (1.3-7.7) k/uL Lymphocytes # 0.9 L (1.0-4.8) k/uL Monocytes # 0.4 (0-1.0) k/uL Eosinophils # 0.0 (0-0.7) k/uL Basophils # 0.0 (0-0.2) k/uL Hypochromasia Marked Anisocytosis Moderate Microcytosis Slight PT (9.0-12.0) sec INR (<1.2) APTT (22.0-30.0) sec Sodium 140 (137-145) mmol/L Potassium 3.2 L (3.5-5.1) mmol/L Chloride 108 H (98-107) mmol/L Carbon Dioxide 23 (22-30) mmol/L Anion Gap 9 mmol/L BUN 42 H (7-17) mg/dL Creatinine 0.66 (0.52-1.04) mg/dL Est GFR (CKD-EPI)AfAm >90 (>60 ml/min/1.73 sqM) Est GFR (CKD-EPI)NonAf 83 (>60 ml/min/1.73 sqM) Glucose 182 H (74-99) mg/dL Calcium 9.7 (8.4-10.2) mg/dL Magnesium 1.4 L (1.6-2.3) mg/dL Total Bilirubin 0.6 (0.2-1.3) mg/dL AST 23 (14-36) U/L ALT 33 (9-52) U/L Alkaline Phosphatase 115 (38-126) U/L Troponin I (0.000-0.034) ng/mL Total Protein 5.7 L (6.3-8.2) g/dL Albumin 3.1 L (3.5-5.0) g/dL Lipase 40 (23-300) U/L Blood Type Blood Type Confirm A Positive Blood Type Recheck Antibody Screen Crossmatch Spec Expiration Date 09/02/18 09/02/18 09/02/18 Range/Units 20:02 20:02 20:02 WBC (3.8-10.6) k/uL RBC (3.80-5.40) m/uL Hgb (11.4-16.0) gm/dL Hct (34.0-46.0) % MCV (80.0-100.0) fL MCH (25.0-35.0) pg MCHC (31.0-37.0) g/dL RDW (11.5-15.5) % Plt Count (150-450) k/uL Neutrophils % % Lymphocytes % % Monocytes % % Eosinophils % % Basophils % % Neutrophils # (1.3-7.7) k/uL Lymphocytes # (1.0-4.8) k/uL Monocytes # (0-1.0) k/uL Eosinophils # (0-0.7) k/uL Basophils # (0-0.2) k/uL Hypochromasia Anisocytosis Microcytosis PT 11.2 (9.0-12.0) sec INR 1.1 (<1.2) APTT 18.0 L (22.0-30.0) sec Sodium (137-145) mmol/L Potassium (3.5-5.1) mmol/L Chloride (98-107) mmol/L Carbon Dioxide (22-30) mmol/L Anion Gap mmol/L BUN (7-17) mg/dL Creatinine (0.52-1.04) mg/dL Est GFR (CKD-EPI)AfAm (>60 ml/min/1.73 sqM) Est GFR (CKD-EPI)NonAf (>60 ml/min/1.73 sqM) Glucose (74-99) mg/dL Calcium (8.4-10.2) mg/dL Magnesium (1.6-2.3) mg/dL Total Bilirubin (0.2-1.3) mg/dL AST (14-36) U/L ALT (9-52) U/L Alkaline Phosphatase (38-126) U/L Troponin I <0.012 (0.000-0.034) ng/mL Total Protein (6.3-8.2) g/dL Albumin (3.5-5.0) g/dL Lipase (23-300) U/L Blood Type A Positive Blood Type Confirm Blood Type Recheck CABO Indicated Antibody Screen NEGATIVE Crossmatch See Detail Spec Expiration Date 09/05/20182301 Disposition Clinical Impression: GI bleed, Anemia Disposition: ADMITTED IP TO THIS [facility] Condition: Fair Is patient prescribed a controlled substance at d/c from ED?: No
[2018-09-02] MEDS ORDERED: SODIUM CHLORIDE 0.9% 1,000 ML IV STA (20:28)
[2018-09-02] MEDS: PANTOPRAZOLE 40 MG/10 ML VIAL IVP SCH (20:43)
[2018-09-02 21:51] LABS: Anisocytosis Moderate; Basophils % (A) 1 %; Eosinophils % (A) 1 %; HCT 22.6 % (34.0-46.0); Hypochromasia Marked; Lymphocytes # (A) 0.9 k/uL (1.0-4.8); Lymphocytes % (A) 15 %; MCH 24.1 pg (25.0-35.0); MCHC 30.1 g/dL (31.0-37.0); MCV 80.3 fL (80.0-100.0); Mean Platelet Volume 8.1; Microcytosis Slight; Monocytes # (A) 0.4 k/uL (0-1.0); Monocytes % (A) 7 %; Neutrophils # (A) 4.2 k/uL (1.3-7.7); Neutrophils % (A) 74 %; Platelet Count 242 k/uL (150-450); RBC 2.82 m/uL (3.80-5.40); RDW 20.8 % (11.5-15.5); WBC 5.7 k/uL (3.8-10.6)
[2018-09-02 21:53] LABS: HGB 6.8 gm/dL (11.4-16.0)
[2018-09-02 21:57] LABS: ALT 33 U/L (9-52); AST 23 U/L (14-36); Albumin 3.1 g/dL (3.5-5.0); Alkaline Phosphatase 115 U/L (38-126); Anion Gap 9 mmol/L; Blood Urea Nitrogen 42 mg/dL (7-17); Calcium 9.7 mg/dL (8.4-10.2); Carbon Dioxide 23 mmol/L (22-30); Chloride 108 mmol/L (98-107); Glucose 182 mg/dL (74-99); Lipase 40 U/L (23-300); Magnesium 1.4 mg/dL (1.6-2.3); Potassium 3.2 mmol/L (3.5-5.1); Sodium 140 mmol/L (137-145); Total Bilirubin 0.6 mg/dL (0.2-1.3); Total Protein 5.7 g/dL (6.3-8.2)
[2018-09-02 22:02] LABS: INR 1.1 (<1.2); Prothrombin Time 11.2 sec (9.0-12.0)
[2018-09-02] MEDS ORDERED: Potassium Replacement Protocol 1 EACH MISC MISCELLANE PRN (23:23)
[2018-09-03] MEDS ORDERED: POTASSIUM CHLORIDE 10 MEQ in WATER FOR INJECTION 1 100ML.BAG IVPB ONE
[2018-09-03] MEDS: MAGNESIUM SULFATE-D5W PMX 1 GM in DEXTROSE/WATER 1 100ML.BAG IVPB SCH ×2 (01:10→02:49)
[2018-09-03 01:23] VITALS: BMI 28.7
[2018-09-03] MEDS ORDERED: POTASSIUM CHLORIDE 10 MEQ in WATER FOR INJECTION 1 100ML.BAG IVPB STA ×2 (01:24→06:57)
[2018-09-03 07:32] LABS: Glucose,Whole Blood 228 mg/dL (75-99)
[2018-09-03 08:44] LABS: ALT 29 U/L (9-52); AST 21 U/L (14-36); Albumin 2.9 g/dL (3.5-5.0); Alkaline Phosphatase 103 U/L (38-126); Anion Gap 6 mmol/L; Blood Urea Nitrogen 32 mg/dL (7-17); Calcium 9.2 mg/dL (8.4-10.2); Carbon Dioxide 25 mmol/L (22-30); Chloride 109 mmol/L (98-107); Glucose 196 mg/dL (74-99); Magnesium 2.1 mg/dL (1.6-2.3); Potassium 3.4 mmol/L (3.5-5.1); Sodium 140 mmol/L (137-145); Total Bilirubin 0.9 mg/dL (0.2-1.3); Total Protein 5.4 g/dL (6.3-8.2)
[2018-09-03 08:46] LABS: Anisocytosis Moderate; Basophils % (A) 0 %; Eosinophils # (A) 0.1 k/uL (0-0.7); Eosinophils % (A) 2 %; HCT 24.6 % (34.0-46.0); HGB 7.7 gm/dL (11.4-16.0); Hypochromasia Marked; Lymphocytes # (A) 0.5 k/uL (1.0-4.8); Lymphocytes % (A) 11 %; MCHC 31.2 g/dL (31.0-37.0); MCV 83.5 fL (80.0-100.0); Mean Platelet Volume 7.7; Microcytosis Slight; Monocytes # (A) 0.3 k/uL (0-1.0); Monocytes % (A) 7 %; Neutrophils # (A) 3.8 k/uL (1.3-7.7); Neutrophils % (A) 77 %; Platelet Count 235 k/uL (150-450); Poikilocytosis Slight; RBC 2.95 m/uL (3.80-5.40)
[2018-09-03] MEDS: PANTOPRAZOLE 40 MG/10 ML VIAL IVP SCH ×2 (08:46→20:50)
[2018-09-03 11:59] LABS: Glucose,Whole Blood 231 mg/dL (75-99)
[2018-09-03 16:58] LABS: Glucose,Whole Blood 181 mg/dL (75-99)
[2018-09-03] MEDS: POTASSIUM CHLORIDE ER 20 MEQ TAB.ER PO SCH ×4 (17:06→20:50)
[2018-09-03] MEDS: INSULIN ASPART (NovoLOG) 100 UNIT/ML VIAL SQ SCH ×2 (17:55→20:50)
[2018-09-03] MEDS ORDERED: INSULIN ASPART (NovoLOG) 100 UNIT/ML VIAL SQ SCH (18:00)
[2018-09-03 20:39] LABS: Glucose,Whole Blood 148 mg/dL (75-99)
[2018-09-03] MEDS: ATORVASTATIN 40 MG TAB PO SCH (20:50)
[2018-09-03] MEDS ORDERED: POTASSIUM CHLORIDE ER 20 MEQ TAB.ER PO STA (22:11)
[2018-09-03] MEDS: LORazepam 0.5 MG TAB PO PRN (22:25)
--- NOTE | 2018-09-03 22:45 | P.HPIM ---
History of Present Illness H&P Date: 09/03/18 Chief Complaint: Low hemoglobin Patient is a 83-year-old female with a known history of liver cancer and cirrhosis status post radiation, diabetes type 2, hypertension, GERD, history of CVA/TIA and other multiple medical problems was initially presents to [facility] with complaints of generalized weakness and nausea. Patient was also having darker stools. Patient is on iron supplementation. Hemoglobin was 6.8. Due to concerns for GI bleed patient was transferred to [facility] for GI evaluation. Patient is status post 1 unit of PRBC transfusion. Hemoglobin currently improved to 7.7. Patient has hypokalemia and hypomagnesemia which is being replaced. Otherwise patient denied any complaints of chest pain or shortness of breath. Currently denied any abdominal pain. No headache or dizziness or lightheadedness. No leg swelling. No fever no chills. No cough or sputum production. Patient says that her she had EGD and colonoscopy about 2 months ago. Patient is currently on IV fluids and Protonix IV. Review of Systems Constitutional: Patient denies any fever or chills . No generalized weakness or weight loss. Abdomen: Patient denied nausea vomiting and diarrhea and abdominal pain. Cardiovascular: Patient denies any chest pain or short of breath no palpitations. Respiratory: patient denied any cough is from production. No shortness of breath Neurologic: Patient denied any numbness or tingling headache. Musculoskeletal: Patient denies any complaints of joint swelling or deformity. Skin: Negative Psychiatric: Negative Endocrine: No heat or cold intolerance. No recent weight gain. Genitourinary: No dysuria or hematuria. All other 14 point ROS negative except the above Past Medical History Past Medical History: Cancer, CVA/TIA, Diabetes Mellitus, GERD/Reflux, Hypertension, Liver Disease Additional Past Medical History / Comment(s): Cyst in right kidney, kidney stones. 2 lesions on liver, cirrhosis, steatosis History of Any Multi-Drug Resistant Organisms: None Reported Past Surgical History: Appendectomy, Back Surgery, Cholecystectomy, Hysterectomy, Orthopedic Surgery, Pacemaker Additional Past Surgical History / Comment(s): Left knee surgery, liver biospy 04/02, loop recorder placed about one year ago. Past Anesthesia/Blood Transfusion Reactions: No Reported Reaction Type of Cardiac Device: Loop Device Placement Date:: 12/15/2017 Past Psychological History: No Psychological Hx Reported Smoking Status: Former smoker Additional Past Alcohol Use History / Comment(s): quit one year ago. Past Drug Use History: None Reported - Past Family History Mother History Unknown: Yes Family Medical History: Hypertension Father History Unknown: Yes Family Medical History: COPD Medications and Allergies Home Medications Medication Instructions Recorded Confirmed Type Gabapentin [Neurontin] 200 mg PO BID 03/12/17 09/02/18 History hydrALAZINE HCL 10 mg PO BID 03/12/17 09/02/18 History Aspirin EC [Ecotrin Low Dose] 81 mg PO DAILY 06/25/18 09/02/18 History Atorvastatin [Lipitor] 40 mg PO HS 06/25/18 09/02/18 History Chlorthalidone [Hygroton] 25 mg PO DAILY 06/25/18 09/02/18 History Clopidogrel [Plavix] 75 mg PO DAILY 06/25/18 09/02/18 History LORazepam [Ativan] 0.5 mg PO BID PRN 06/25/18 09/02/18 History Ondansetron [Zofran] 4 mg PO Q6H PRN 06/25/18 09/02/18 History sitaGLIPtin [Januvia] 50 mg PO DAILY 06/25/18 09/02/18 History Ferrous Sulfate [Iron] 325 mg PO DAILY 09/02/18 09/02/18 History Lisinopril 40 mg PO DAILY 09/02/18 09/02/18 History Potassium Chloride ER [K-Dur 20] 20 meq PO DAILY 09/02/18 09/02/18 History Ranitidine HCl [Zantac] 150 mg PO BID 09/02/18 09/02/18 History amLODIPine [Norvasc] 10 mg PO DAILY 09/02/18 09/02/18 History Allergies Allergy/AdvReac Type Severity Reaction Status Date / Time Penicillins Allergy Mild Rash/Hives Verified 09/02/18 20:24 codeine AdvReac Intermediate Confusion Verified 09/02/18 20:24 Physical Exam Vitals: Vital Signs Temp Pulse Pulse Resp BP BP Pulse Ox 09/03/18 07:00 98.7 F 76 12 145/60 98 09/03/18 03:45 98.1 F 82 18 125/54 97 09/03/18 01:29 97.9 F 83 16 138/49 98 09/03/18 00:59 98.1 F 87 16 133/67 133/67 97 09/03/18 00:49 98.0 F 94 16 113/57 94 L 09/02/18 22:05 98.3 F 91 16 136/62 91 L 09/02/18 21:11 98.3 F 91 16 136/62 09/02/18 21:00 99 09/02/18 20:50 97 09/02/18 20:30 87 16 131/63 97 09/02/18 20:20 90 16 131/63 97 09/02/18 20:10 88 16 131/63 97 09/02/18 19:50 99.2 F 96 16 116/85 98 Intake and Output 09/02/18 09/03/18 09/03/18 22:59 06:59 14:59 Intake Total 310 Balance 310 Intake: Blood Product 310 Rc As-1 Unit 310 [id number] Other: Voiding Method Toilet # Voids 1 2 Weight 66.678 kg PHYSICAL EXAMINATION: Patient is lying in the bed comfortably, no acute distress, awake alert and oriented.. HEENT: Normocephalic. Neck is supple. Pupils reactive. Nostrils clear. Oral cavity is moist. Ears reveal no drainage. Neck reveals no JVD, carotid bruits, or thyromegaly. CHEST EXAMINATION: Trachea is central. Symmetrical expansion. Lung doe clear to auscultation and percussion. CARDIAC: Normal S1, S2 with no gallops. No murmurs ABDOMEN: Soft. Bowel sounds normal. No organomegaly. No abdominal bruits. Extremities: reveal no edema. No clubbing or cyanosis Neurologically awake, alert, oriented x3 with well-coordinated movements. No focal deficits noted Skin: No rash or skin lesions. Psychiatric: Coperative. Nonsuicidal Musculoskeletal: No joint swelling or deformity. Normal range of motion. Results CBC & Chem 7: 09/03/18 07:32 09/03/18 21:45 Labs: Abnormal Lab Results - Last 24 Hours (Table) 09/02/18 09/02/18 09/02/18 Range/Units 20:02 20:02 20:02 RBC 2.82 L (3.80-5.40) m/uL Hgb 6.8 L* (11.4-16.0) gm/dL Hct 22.6 L (34.0-46.0) % MCH 24.1 L (25.0-35.0) pg MCHC 30.1 L (31.0-37.0) g/dL RDW 20.8 H (11.5-15.5) % Lymphocytes # 0.9 L (1.0-4.8) k/uL APTT 18.0 L (22.0-30.0) sec Potassium 3.2 L (3.5-5.1) mmol/L Chloride 108 H (98-107) mmol/L BUN 42 H (7-17) mg/dL Glucose 182 H (74-99) mg/dL POC Glucose (mg/dL) (75-99) mg/dL Magnesium 1.4 L (1.6-2.3) mg/dL Total Protein 5.7 L (6.3-8.2) g/dL Albumin 3.1 L (3.5-5.0) g/dL Stool Occult Blood (Negative) Crossmatch 09/02/18 09/02/18 09/03/18 Range/Units 20:02 21:58 07:20 RBC (3.80-5.40) m/uL Hgb (11.4-16.0) gm/dL Hct (34.0-46.0) % MCH (25.0-35.0) pg MCHC (31.0-37.0) g/dL RDW (11.5-15.5) % Lymphocytes # (1.0-4.8) k/uL APTT (22.0-30.0) sec Potassium (3.5-5.1) mmol/L Chloride (98-107) mmol/L BUN (7-17) mg/dL Glucose (74-99) mg/dL POC Glucose (mg/dL) 228 H (75-99) mg/dL Magnesium (1.6-2.3) mg/dL Total Protein (6.3-8.2) g/dL Albumin (3.5-5.0) g/dL Stool Occult Blood Positive H (Negative) Crossmatch See Detail 09/03/18 09/03/18 09/03/18 Range/Units 07:32 07:32 11:43 RBC 2.95 L (3.80-5.40) m/uL Hgb 7.7 L (11.4-16.0) gm/dL Hct 24.6 L (34.0-46.0) % MCH (25.0-35.0) pg MCHC (31.0-37.0) g/dL RDW 22.0 H (11.5-15.5) % Lymphocytes # 0.5 L (1.0-4.8) k/uL APTT (22.0-30.0) sec Potassium 3.4 L (3.5-5.1) mmol/L Chloride 109 H (98-107) mmol/L BUN 32 H (7-17) mg/dL Glucose 196 H (74-99) mg/dL POC Glucose (mg/dL) 231 H (75-99) mg/dL Magnesium (1.6-2.3) mg/dL Total Protein 5.4 L (6.3-8.2) g/dL Albumin 2.9 L (3.5-5.0) g/dL Stool Occult Blood (Negative) Crossmatch Thrombosis Risk Factor Assmnt - DVT/VTE Prophylaxis DVT/VTE Prophylaxis: Mechanical Prophylaxis ordered - Choose All That Apply Each Factor Represents 1 point: Abnormal pulmonary function (COPD) Each Risk Factor Represents 3 Points: Age 75 years or older Thrombosis Risk Factor Assessment Total Risk Factor Score: 4 Thrombosis Risk Factor Assessment Level: Moderate Risk Assessment and Plan Assessment: Acute blood loss anemia possible GI bleed. Hemoglobin is 6.8. FOBT positive History of liver cancer status post radiation beads, liver cirrhosis and hepatic steatosis GERD Diabetes type 2 History of CVA/TIA Hypertension History of loop recorder placement and removal one year ago Previous history of smoking DVT prophylaxis with SCDs Plan: Patient will be continued on IV hydration. Continue with IV Protonix. Monitor H&H. Status post 1 unit of PRBC transfusion. GI was consulted. We will follow up closely and further recommendations based on the clinical course. Prognosis is guarded. Time with Patient: Greater than 30
[2018-09-04 07:20] LABS: Glucose,Whole Blood 151 mg/dL (75-99)
[2018-09-04 07:46] LABS: Anisocytosis Moderate; Basophils % (A) 1 %; Eosinophils # (A) 0.2 k/uL (0-0.7); Eosinophils % (A) 4 %; HCT 23.6 % (34.0-46.0); HGB 7.1 gm/dL (11.4-16.0); Hypochromasia Marked; Lymphocytes # (A) 0.7 k/uL (1.0-4.8); Lymphocytes % (A) 17 %; MCHC 30.2 g/dL (31.0-37.0); MCV 86.1 fL (80.0-100.0); Mean Platelet Volume 7.8; Microcytosis Slight; Monocytes # (A) 0.3 k/uL (0-1.0); Monocytes % (A) 7 %; Neutrophils # (A) 2.6 k/uL (1.3-7.7); Neutrophils % (A) 68 %; Platelet Count 227 k/uL (150-450); Poikilocytosis Slight; RBC 2.74 m/uL (3.80-5.40); RDW 20.8 % (11.5-15.5); WBC 3.8 k/uL (3.8-10.6)
[2018-09-04] MEDS: amLODIPine 10 MG TAB PO SCH (09:03)
[2018-09-04] MEDS: PANTOPRAZOLE 40 MG/10 ML VIAL IVP SCH ×2 (09:03→20:52)
[2018-09-04] MEDS: LINAGLIPTIN 5 MG TABLET PO SCH (09:03)
[2018-09-04] MEDS: INSULIN ASPART (NovoLOG) 100 UNIT/ML VIAL SQ SCH ×4 (09:04→20:52)
[2018-09-04 10:47] LABS: Anion Gap 3 mmol/L; Blood Urea Nitrogen 16 mg/dL (7-17); Calcium 9.7 mg/dL (8.4-10.2); Carbon Dioxide 20 mmol/L (22-30); Chloride 121 mmol/L (98-107); Glucose 130 mg/dL (74-99); Potassium 4.6 mmol/L (3.5-5.1); Sodium 144 mmol/L (137-145)
[2018-09-04 11:45] LABS: Glucose,Whole Blood 168 mg/dL (75-99)
[2018-09-04 16:58] LABS: Glucose,Whole Blood 164 mg/dL (75-99)
[2018-09-04] MEDS: LORazepam 0.5 MG TAB PO PRN (20:52)
[2018-09-04] MEDS: ATORVASTATIN 40 MG TAB PO SCH (20:52)
[2018-09-04 20:55] LABS: Glucose,Whole Blood 159 mg/dL (75-99)
--- NOTE | 2018-09-05 00:15 | P.PN ---
Subjective Progress Note Date: 09/04/18 Principal diagnosis: Acute GI bleed Patient is a 83-year-old female with a known history of liver cancer and cirrhosis status post radiation, diabetes type 2, hypertension, GERD, history of CVA/TIA and other multiple medical problems was initially presents to [facility] with complaints of generalized weakness and nausea. Patient was also having darker stools. Patient is on iron supplementation. Hemoglobin was 6.8. Due to concerns for GI bleed patient was transferred to [facility] for GI evaluation. Patient is status post 1 unit of PRBC transfusion. Hemoglobin currently improved to 7.7. Patient has hypokalemia and hypomagnesemia which is being replaced. Otherwise patient denied any complaints of chest pain or shortness of breath. Currently denied any abdominal pain. No headache or dizziness or lightheadedness. No leg swelling. No fever no chills. No cough or sputum production. Patient says that her she had EGD and colonoscopy about 2 months ago. Patient is currently on IV fluids and Protonix IV. 09/04/2018 Patient denied any complaints of abdominal pain. No nausea vomiting. Tolerating clear liquid diet. Hemoglobin currently dropped to 7.1 from 7.7 yesterday. Denied any complaints of dizziness or lightheadedness. Denied any dark colored stools. No fever no chills. plus of chest pain or shortness of breath. GI is following. Current medications reviewed. Objective - Vital Signs Vital signs: Vital Signs Temp 98.8 F 09/04/18 20:06 Pulse 72 09/04/18 20:06 Resp 16 09/04/18 20:06 BP 151/65 09/04/18 20:06 Pulse Ox 97 09/04/18 20:06 Intake & Output 09/04/18 09/04/18 09/05/18 06:59 18:59 06:59 Intake Total 610 500 Balance 610 500 Intake: Intake, IV Titration 360 Amount Sodium Chloride 0.9% 1, 360 000 ml @ 100 mls/hr IV . Q10H [facility] Rx#:[id number] Oral 250 500 Other: Voiding Method Toilet # Voids 2 1 # Bowel Movements 3 - Exam PHYSICAL EXAMINATION: Patient is lying in the bed comfortably, no acute distress, awake alert and oriented.. HEENT: Normocephalic. Neck is supple. Pupils reactive. Nostrils clear. Oral cavity is moist. Ears reveal no drainage. Neck reveals no JVD, carotid bruits, or thyromegaly. CHEST EXAMINATION: Trachea is central. Symmetrical expansion. Lung doe clear to auscultation and percussion. CARDIAC: Normal S1, S2 with no gallops. No murmurs ABDOMEN: Soft. Bowel sounds normal. No organomegaly. No abdominal bruits. Extremities: reveal no edema. No clubbing or cyanosis Neurologically awake, alert, oriented x3 with well-coordinated movements. No focal deficits noted Skin: No rash or skin lesions. Psychiatric: Coperative. Nonsuicidal Musculoskeletal: No joint swelling or deformity. Normal range of motion. - Labs CBC & Chem 7: 09/04/18 06:25 09/04/18 06:25 Labs: Abnormal Lab Results - Last 24 Hours (Table) 09/02/18 09/04/18 09/04/18 Range/Units 20:02 06:25 06:25 RBC 2.74 L (3.80-5.40) m/uL Hgb 7.1 L (11.4-16.0) gm/dL Hct 23.6 L (34.0-46.0) % MCHC 30.2 L (31.0-37.0) g/dL RDW 20.8 H (11.5-15.5) % Lymphocytes # 0.7 L (1.0-4.8) k/uL Chloride 121 H (98-107) mmol/L Carbon Dioxide 20 L (22-30) mmol/L Glucose 130 H (74-99) mg/dL POC Glucose (mg/dL) (75-99) mg/dL Crossmatch See Detail 09/04/18 09/04/18 09/04/18 Range/Units 07:17 11:42 16:46 RBC (3.80-5.40) m/uL Hgb (11.4-16.0) gm/dL Hct (34.0-46.0) % MCHC (31.0-37.0) g/dL RDW (11.5-15.5) % Lymphocytes # (1.0-4.8) k/uL Chloride (98-107) mmol/L Carbon Dioxide (22-30) mmol/L Glucose (74-99) mg/dL POC Glucose (mg/dL) 151 H 168 H 164 H (75-99) mg/dL Crossmatch 09/04/18 Range/Units 20:37 RBC (3.80-5.40) m/uL Hgb (11.4-16.0) gm/dL Hct (34.0-46.0) % MCHC (31.0-37.0) g/dL RDW (11.5-15.5) % Lymphocytes # (1.0-4.8) k/uL Chloride (98-107) mmol/L Carbon Dioxide (22-30) mmol/L Glucose (74-99) mg/dL POC Glucose (mg/dL) 159 H (75-99) mg/dL Crossmatch Assessment and Plan Assessment: Acute blood loss anemia possible GI bleed. Hemoglobin is 6.8. His post 1 unit PRBC. 7.7---7.1, FOBT positive History of liver cancer status post radiation beads, liver cirrhosis and hepatic steatosis GERD Diabetes type 2 History of CVA/TIA Hypertension History of loop recorder placement and removal one year ago Previous history of smoking DVT prophylaxis with SCDs Plan: Patient will be continued on IV hydration. Continue with IV Protonix. Monitor H&H. Status post 1 unit of PRBC transfusion. GI was consulted. We will follow up closely and further recommendations based on the clinical course. Prognosis is guarded. Time with Patient: Greater than 30
[2018-09-05 07:04] LABS: Glucose,Whole Blood 132 mg/dL (75-99)
[2018-09-05 07:16] LABS: Anisocytosis Moderate; Basophils % (A) 1 %; Eosinophils # (A) 0.2 k/uL (0-0.7); Eosinophils % (A) 4 %; HCT 23.7 % (34.0-46.0); HGB 7.3 gm/dL (11.4-16.0); Hypochromasia Marked; Lymphocytes # (A) 0.6 k/uL (1.0-4.8); Lymphocytes % (A) 15 %; MCH 26.3 pg (25.0-35.0); MCHC 30.8 g/dL (31.0-37.0); MCV 85.5 fL (80.0-100.0); Mean Platelet Volume 7.9; Microcytosis Slight; Monocytes # (A) 0.3 k/uL (0-1.0); Monocytes % (A) 7 %; Neutrophils # (A) 2.9 k/uL (1.3-7.7); Neutrophils % (A) 71 %; Platelet Count 222 k/uL (150-450); Poikilocytosis Slight; RBC 2.77 m/uL (3.80-5.40); RDW 21.3 % (11.5-15.5); WBC 4.1 k/uL (3.8-10.6)
[2018-09-05] MEDS: INSULIN ASPART (NovoLOG) 100 UNIT/ML VIAL SQ SCH ×4 (07:30→20:28)
[2018-09-05 07:31] LABS: Anion Gap 4 mmol/L; Blood Urea Nitrogen 11 mg/dL (7-17); Calcium 8.9 mg/dL (8.4-10.2); Carbon Dioxide 23 mmol/L (22-30); Chloride 112 mmol/L (98-107); Glucose 123 mg/dL (74-99); Potassium 3.6 mmol/L (3.5-5.1); Sodium 139 mmol/L (137-145)
[2018-09-05] MEDS: PANTOPRAZOLE 40 MG/10 ML VIAL IVP SCH ×2 (09:50→20:33)
[2018-09-05] MEDS ORDERED: Potassium Replacement Protocol 1 EACH MISC MISCELLANE PRN (10:50)
[2018-09-05 11:58] LABS: Glucose,Whole Blood 233 mg/dL (75-99)
[2018-09-05] MEDS: POTASSIUM CHLORIDE 10 MEQ in WATER FOR INJECTION 1 100ML.BAG IVPB SCH ×2 (12:38→15:43)
[2018-09-05] MEDS: amLODIPine 10 MG TAB PO SCH (12:46)
[2018-09-05] MEDS: LINAGLIPTIN 5 MG TABLET PO SCH (12:46)
[2018-09-05 16:57] LABS: Glucose,Whole Blood 131 mg/dL (75-99)
[2018-09-05] MEDS ORDERED: MAGNESIUM CITRATE 296 ML BOTTLE PO ONE (20:08)
[2018-09-05 20:17] LABS: Glucose,Whole Blood 125 mg/dL (75-99)
--- NOTE | 2018-09-05 20:30 | P.CONS ---
History of Present Illness - Reason for Consult Consult date: 09/05/18 Anemia Requesting physician: Da Power - Chief Complaint Anemia - History of Present Illness 83-year-old female with a known medical history of cirrhosis and liver cancer status post radiation therapy, diabetes mellitus, hypertension, GERD, prior CVA/TIA and prior presentation for anemia who presented with complaints of weakness and nausea. The patient reports generalized weakness. She reports darker bowel movements and was found to have a hemoglobin of 6.8. The patient is on iron supplementation. 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 Currently lying in bed the patient is reporting that nausea is improved and she has had no further bowel movement. She denies any gross bleeding per rectum. No change in bowel habits, constipation or diarrhea. Hemoglobin is currently 7.3 from 7.1 previously. Review of Systems REVIEW OF SYSTEMS: CONSTITUTIONAL: Denies any fevers, chills, weight change or fatigue. CARDIOVASCULAR: Denies any chest pain, palpitations high or low blood pressures RESPIRATORY: Denies any shortness of breath, hemoptysis or cough. GENITOURINARY: No dysuria or hematuria. MUSCULOSKELETAL: Patient reporting generalize weakness. SKIN: Denies any new rashes or lesions, jaundice or pallor. PSYCHIATRIC: Denies any depression or anxiety. NEUROLOGY: Denies headache, denies any new focal deficits. EARS/NOSE/THROAT: No recent hearing change, congestion, nasal discharge or sore throat. EYES: No pain in eyes, discharge or change in vision. GASTROINTESTINAL: As per HPI. Past Medical History Past Medical History: Cancer, CVA/TIA, Diabetes Mellitus, GERD/Reflux, Hypertension, Liver Disease Additional Past Medical History / Comment(s): Cyst in right kidney, kidney stones. 2 lesions on liver, cirrhosis, steatosis History of Any Multi-Drug Resistant Organisms: None Reported Past Surgical History: Appendectomy, Back Surgery, Cholecystectomy, Hysterectomy, Orthopedic Surgery, Pacemaker Additional Past Surgical History / Comment(s): Left knee surgery, liver biospy 04/02, loop recorder placed about one year ago. Past Anesthesia/Blood Transfusion Reactions: No Reported Reaction Type of Cardiac Device: Loop Device Placement Date:: 12/15/2017 Past Psychological History: No Psychological Hx Reported Smoking Status: Former smoker Additional Past Alcohol Use History / Comment(s): quit one year ago. Past Drug Use History: None Reported - Past Family History Mother History Unknown: Yes Family Medical History: Hypertension Father History Unknown: Yes Family Medical History: COPD Medications and Allergies Home Medications Medication Instructions Recorded Confirmed Type Gabapentin [Neurontin] 200 mg PO BID 03/12/17 09/02/18 History hydrALAZINE HCL 10 mg PO BID 03/12/17 09/02/18 History Aspirin EC [Ecotrin Low Dose] 81 mg PO DAILY 06/25/18 09/02/18 History Atorvastatin [Lipitor] 40 mg PO HS 06/25/18 09/02/18 History Chlorthalidone [Hygroton] 25 mg PO DAILY 06/25/18 09/02/18 History Clopidogrel [Plavix] 75 mg PO DAILY 06/25/18 09/02/18 History LORazepam [Ativan] 0.5 mg PO BID PRN 06/25/18 09/02/18 History Ondansetron [Zofran] 4 mg PO Q6H PRN 06/25/18 09/02/18 History sitaGLIPtin [Januvia] 50 mg PO DAILY 06/25/18 09/02/18 History Ferrous Sulfate [Iron] 325 mg PO DAILY 09/02/18 09/02/18 History Lisinopril 40 mg PO DAILY 09/02/18 09/02/18 History Potassium Chloride ER [K-Dur 20] 20 meq PO DAILY 09/02/18 09/02/18 History Ranitidine HCl [Zantac] 150 mg PO BID 09/02/18 09/02/18 History amLODIPine [Norvasc] 10 mg PO DAILY 09/02/18 09/02/18 History Allergies Allergy/AdvReac Type Severity Reaction Status Date / Time Penicillins Allergy Mild Rash/Hives Verified 09/02/18 20:24 codeine AdvReac Intermediate Confusion Verified 09/02/18 20:24 Physical Exam Vitals: Vital Signs Temp Pulse Resp BP Pulse Ox 09/05/18 19:23 98.3 F 79 16 141/55 99 09/05/18 15:00 98.2 F 65 17 150/69 99 09/05/18 07:37 98.2 F 83 16 151/62 98 09/05/18 03:53 14 09/05/18 01:31 98.7 F 76 16 145/74 98 09/05/18 00:15 18 09/04/18 20:45 18 Intake and Output 09/05/18 09/05/18 09/05/18 06:59 14:59 22:59 Intake Total 590 400 260 Balance 590 400 260 Intake: IV 100 Potassium Chloride 10 meq 100 In Water For Injection 1 100ml.bag @ 100 mls/hr IVPB Q1H [facility] Rx#: [id number] Oral 590 300 260 Other: Voiding Method Toilet # Voids 1 2 # Bowel Movements 1 On physical examination, patient appears comfortable in no apparent distress. HEAD: Normocephalic, atraumatic. EYES: No scleral icterus. No conjunctival injection. MOUTH: No lesions, tongue midline. NECK: Trachea midline, no gross abnormalities. CHEST: Decreased air entry in all doe. HEART: S1-S2 appreciated. ABDOMEN: Soft, obese. Bowel sounds are positive. No organomegaly. No guarding or rigidity. EXTREMITIES: No pedal edema. SKIN: No rashes, no jaundice. NEUROLOGIC: Alert and oriented x3. No focal deficits. Results CBC & Chem 7: 09/05/18 06:28 09/05/18 06:28 Labs: Abnormal Lab Results - Last 24 Hours (Table) 09/04/18 09/05/18 09/05/18 Range/Units 20:37 06:28 06:28 RBC 2.77 L (3.80-5.40) m/uL Hgb 7.3 L (11.4-16.0) gm/dL Hct 23.7 L (34.0-46.0) % MCHC 30.8 L (31.0-37.0) g/dL RDW 21.3 H (11.5-15.5) % Lymphocytes # 0.6 L (1.0-4.8) k/uL Chloride 112 H (98-107) mmol/L Glucose 123 H (74-99) mg/dL POC Glucose (mg/dL) 159 H (75-99) mg/dL 09/05/18 09/05/18 09/05/18 Range/Units 06:52 11:45 16:55 RBC (3.80-5.40) m/uL Hgb (11.4-16.0) gm/dL Hct (34.0-46.0) % MCHC (31.0-37.0) g/dL RDW (11.5-15.5) % Lymphocytes # (1.0-4.8) k/uL Chloride (98-107) mmol/L Glucose (74-99) mg/dL POC Glucose (mg/dL) 132 H 233 H 131 H (75-99) mg/dL Assessment and Plan (1) Anemia Narrative/Plan: Anemia of acute blood loss, likely secondary to bleeding AVM in the setting of recent GI bleed in June 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 Differential also includes peptic ulcer disease, erosive esophagitis/gastritis, non-GI source of bleeding which is less likely in the setting of positive stool for occult blood. Current Visit: Yes Status: Acute Code(s): D64.9 - ANEMIA, UNSPECIFIED SNOMED Code(s): 039857260 (2) GI bleed Current Visit: Yes Status: Acute Code(s): K92.2 - GASTROINTESTINAL HEMORRHAGE, UNSPECIFIED SNOMED Code(s): 04821638 Plan: Supportive care Continue liquid diet Bowel prep tonight Nothing by mouth after midnight Plan for video capsule endoscopy in the morning Further recommendations pending findings of video capsule endoscopy Patient may benefit from a push enteroscopy if source of bleeding is found to be in the duodenum or proximal jejunum Continue to monitor hemoglobin and hematocrit and transfuse as needed Continue iron supplementation Thank you for allowing us to be participate in the care of the patient we will continue to follow
[2018-09-05] MEDS: ATORVASTATIN 40 MG TAB PO SCH (20:33)
[2018-09-05] MEDS ORDERED: ONDANSETRON 4 MG/2 ML VIAL IVP STA (22:32)
--- NOTE | 2018-09-06 00:01 | P.PN ---
Subjective Progress Note Date: 09/05/18 Principal diagnosis: Acute GI bleed Patient is a 83-year-old female with a known history of liver cancer and cirrhosis status post radiation, diabetes type 2, hypertension, GERD, history of CVA/TIA and other multiple medical problems was initially presents to [facility] with complaints of generalized weakness and nausea. Patient was also having darker stools. Patient is on iron supplementation. Hemoglobin was 6.8. Due to concerns for GI bleed patient was transferred to [facility] for GI evaluation. Patient is status post 1 unit of PRBC transfusion. Hemoglobin currently improved to 7.7. Patient has hypokalemia and hypomagnesemia which is being replaced. Otherwise patient denied any complaints of chest pain or shortness of breath. Currently denied any abdominal pain. No headache or dizziness or lightheadedness. No leg swelling. No fever no chills. No cough or sputum production. Patient says that her she had EGD and colonoscopy about 2 months ago. Patient is currently on IV fluids and Protonix IV. 09/04/2018 Patient denied any complaints of abdominal pain. No nausea vomiting. Tolerating clear liquid diet. Hemoglobin currently dropped to 7.1 from 7.7 yesterday. Denied any complaints of dizziness or lightheadedness. Denied any dark colored stools. No fever no chills. plus of chest pain or shortness of breath. GI is following. 09/05/2018 Patient denied any complains of abdominal pain. No nausea vomiting or diarrhea. Patient did not have any bowel movement today. Hemoglobin is slightly improved to 7.3 today. GI is planning for capsule endoscopy tomorrow. Otherwise patient denied any complains of chest pain or shortness of breath. No nausea. No headache or dizziness lightheadedness. Current medications reviewed. Objective - Vital Signs Vital signs: Vital Signs Temp 98.3 F 09/05/18 19:23 Pulse 79 09/05/18 19:23 Resp 16 09/05/18 19:23 BP 141/55 09/05/18 19:23 Pulse Ox 99 09/05/18 19:23 Intake & Output 09/05/18 09/05/18 09/06/18 06:59 18:59 06:59 Intake Total 590 660 Balance 590 660 Intake: IV 100 Potassium Chloride 10 meq 100 In Water For Injection 1 100ml.bag @ 100 mls/hr IVPB Q1H [facility] Rx#: [id number] Oral 590 560 Other: Voiding Method Toilet # Voids 1 2 # Bowel Movements 1 - Exam PHYSICAL EXAMINATION: Patient is lying in the bed comfortably, no acute distress, awake alert and oriented.. HEENT: Normocephalic. Neck is supple. Pupils reactive. Nostrils clear. Oral cavity is moist. Ears reveal no drainage. Neck reveals no JVD, carotid bruits, or thyromegaly. CHEST EXAMINATION: Trachea is central. Symmetrical expansion. Lung doe clear to auscultation and percussion. CARDIAC: Normal S1, S2 with no gallops. No murmurs ABDOMEN: Soft. Bowel sounds normal. No organomegaly. No abdominal bruits. Extremities: reveal no edema. No clubbing or cyanosis Neurologically awake, alert, oriented x3 with well-coordinated movements. No focal deficits noted Skin: No rash or skin lesions. Psychiatric: Coperative. Nonsuicidal Musculoskeletal: No joint swelling or deformity. Normal range of motion. - Labs CBC & Chem 7: 09/05/18 06:28 09/05/18 06:28 Labs: Abnormal Lab Results - Last 24 Hours (Table) 09/05/18 09/05/18 09/05/18 Range/Units 06:28 06:28 06:52 RBC 2.77 L (3.80-5.40) m/uL Hgb 7.3 L (11.4-16.0) gm/dL Hct 23.7 L (34.0-46.0) % MCHC 30.8 L (31.0-37.0) g/dL RDW 21.3 H (11.5-15.5) % Lymphocytes # 0.6 L (1.0-4.8) k/uL Chloride 112 H (98-107) mmol/L Glucose 123 H (74-99) mg/dL POC Glucose (mg/dL) 132 H (75-99) mg/dL 09/05/18 09/05/18 09/05/18 Range/Units 11:45 16:55 20:15 RBC (3.80-5.40) m/uL Hgb (11.4-16.0) gm/dL Hct (34.0-46.0) % MCHC (31.0-37.0) g/dL RDW (11.5-15.5) % Lymphocytes # (1.0-4.8) k/uL Chloride (98-107) mmol/L Glucose (74-99) mg/dL POC Glucose (mg/dL) 233 H 131 H 125 H (75-99) mg/dL Assessment and Plan Assessment: Acute blood loss anemia possible GI bleed. Hemoglobin is 6.8. His post 1 unit PRBC. 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 Continue with IV Protonix. Monitor H&H. Status post 1 unit of PRBC transfusion. GI was consulted. We will follow up closely and further recommendations based on the clinical course. Prognosis is guarded. Time with Patient: Greater than 30
[2018-09-06 07:09] LABS: Glucose,Whole Blood 150 mg/dL (75-99)
[2018-09-06] MEDS: PANTOPRAZOLE 40 MG/10 ML VIAL IVP SCH ×2 (07:24→20:52)
[2018-09-06] MEDS: INSULIN ASPART (NovoLOG) 100 UNIT/ML VIAL SQ SCH ×4 (07:24→20:48)
[2018-09-06 08:27] LABS: Anisocytosis Moderate; Basophils % (A) 1 %; Eosinophils # (A) 0.1 k/uL (0-0.7); Eosinophils % (A) 3 %; HCT 24.2 % (34.0-46.0); HGB 7.5 gm/dL (11.4-16.0); Hypochromasia Marked; Lymphocytes # (A) 0.5 k/uL (1.0-4.8); Lymphocytes % (A) 14 %; MCH 25.9 pg (25.0-35.0); MCHC 30.8 g/dL (31.0-37.0); MCV 84.2 fL (80.0-100.0); Mean Platelet Volume 8.8; Microcytosis Slight; Monocytes # (A) 0.3 k/uL (0-1.0); Monocytes % (A) 8 %; Neutrophils # (A) 2.6 k/uL (1.3-7.7); Neutrophils % (A) 72 %; Platelet Count 215 k/uL (150-450); RBC 2.88 m/uL (3.80-5.40); RDW 22.2 % (11.5-15.5); WBC 3.6 k/uL (3.8-10.6)
[2018-09-06] MEDS: amLODIPine 10 MG TAB PO SCH (09:34)
[2018-09-06] MEDS: LINAGLIPTIN 5 MG TABLET PO SCH (09:34)
--- NOTE | 2018-09-06 11:51 | P.PN ---
Subjective Progress Note Date: 09/06/18 Principal diagnosis: Anemia 83-year-old female with a history of hepatic carcinoma status post radiation treatment admitted with weakness nausea anemia. Small ENDOSCOPY SCHEDULED THIS AFTERNOON. 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 HEMOGLOBIN 7.5. Presently denies episodes of hematemesis hematochezia or melena. No abdominal complaints. Objective - Vital Signs Vital signs: Vital Signs Temp 98.7 F 09/06/18 06:53 Pulse 60 09/06/18 06:53 Resp 15 09/06/18 06:53 BP 136/60 09/06/18 06:53 Pulse Ox 93 L 09/06/18 06:53 Intake & Output 09/05/18 09/06/18 09/06/18 18:59 06:59 18:59 Intake Total 660 280 Balance 660 280 Weight 66.678 kg Intake: IV 100 Potassium Chloride 10 meq 100 In Water For Injection 1 100ml.bag @ 100 mls/hr IVPB Q1H [facility] Rx#: [id number] Oral 560 280 Other: # Voids 2 2 # Bowel Movements 2 - Exam General appearance: The patient is alert, oriented, in no acute distress. HET: Head is normocephalic and atraumatic. Pupils are equal and reactive. Oropharynx is clear without lesions. Neck: Supple without lymphadenopathy. Trachea midline. Heart: S1 S2. Regular rate and rhythm. Lungs: No crackles or wheezes are heard. Abdomen: Soft, nontender, nondistended with bowel sounds. No peritoneal signs. No palpable organomegaly or masses. Extremities: Normal skin color and turgor. No cyanosis, rash, ulceration, clubbing, or edema. Radial and pedal pulses are 2/4 bilaterally. Neurological: No focal deficits. Strength and sensation are grossly intact. - Labs CBC & Chem 7: 09/06/18 07:08 09/06/18 07:08 Labs: Abnormal Lab Results - Last 24 Hours (Table) 09/05/18 09/05/18 09/05/18 Range/Units 11:45 16:55 20:15 WBC (3.8-10.6) k/uL RBC (3.80-5.40) m/uL Hgb (11.4-16.0) gm/dL Hct (34.0-46.0) % MCHC (31.0-37.0) g/dL RDW (11.5-15.5) % Lymphocytes # (1.0-4.8) k/uL POC Glucose (mg/dL) 233 H 131 H 125 H (75-99) mg/dL 09/06/18 09/06/18 Range/Units 07:07 07:08 WBC 3.6 L (3.8-10.6) k/uL RBC 2.88 L (3.80-5.40) m/uL Hgb 7.5 L (11.4-16.0) gm/dL Hct 24.2 L (34.0-46.0) % MCHC 30.8 L (31.0-37.0) g/dL RDW 22.2 H (11.5-15.5) % Lymphocytes # 0.5 L (1.0-4.8) k/uL POC Glucose (mg/dL) 150 H (75-99) mg/dL Assessment and Plan (1) Anemia Narrative/Plan: Anemia of acute blood loss, likely secondary to bleeding AVM in the setting of recent GI bleed in June 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 Differential also includes peptic ulcer disease, erosive es ophagitis/gastritis, non-GI source of bleeding which is less likely in the setting of positive stool for occult blood. Current Visit: Yes Status: Acute Code(s): D64.9 - ANEMIA, UNSPECIFIED SNOMED Code(s): 245179957 (2) GI bleed Current Visit: Yes Status: Acute Code(s): K92.2 - GASTROINTESTINAL HE MORRHAGE, UNSPECIFIED SNOMED Code(s): 00607356 Plan: Supportive care Continue liquid diet Plan for video capsule endoscopy this afternoon Further recommendations pending findings of video capsule endoscopy Patient may benefit from a push enteroscopy if source of bleeding is found to be in the duodenum or proximal jejunum Continue to monitor hemoglobin and hematocrit and transfuse as needed Continue iron supplementation Thank you for allowing us to be participate in the care of the patient we will continue to follow Assessment and plan a care discussed with Dr. Wood
[2018-09-06 11:55] LABS: Glucose,Whole Blood 150 mg/dL (75-99)
[2018-09-06] MEDS ORDERED: SIMETHICONE 40 MG/0.6 ML DROPS 2,000 MG/30 ML BOTTLE PO ONE (14:06)
--- NOTE | 2018-09-06 15:36 | P.PN ---
Subjective 83-year-old female with a known history of liver cancer and cirrhosis status post radiation, diabetes type 2, hypertension, GERD, history of CVA/TIA and other multiple medical problems was initially presents to [facility] with complaints of generalized weakness and nausea. Patient was also having darker stools. Patient is on iron supplementation. Hemoglobin was 6.8. Due to concerns for GI bleed patient was transferred to [facility] for GI evaluation. Patient is status post 1 unit of PRBC transfusion. Hemoglobin currently improved to 7.7. Patient has hypokalemia and hypomagnesemia which is being replaced. Otherwise patient denied any complaints of chest pain or shortness of breath. Currently denied any abdominal pain. No headache or dizziness or lightheadedness. No leg swelling. No fever no chills. No cough or sputum production. Patient says that her she had EGD and colonoscopy about 2 months ago. Patient is currently on IV fluids and Protonix IV. 09/04/2018 Patient denied any complaints of abdominal pain. No nausea vomiting. Tolerating clear liquid diet. Hemoglobin currently dropped to 7.1 from 7.7 yesterday. Denied any complaints of dizziness or lightheadedness. Denied any dark colored stools. No fever no chills. plus of chest pain or shortness of breath. GI is following. 09/05/2018 Patient denied any complains of abdominal pain. No nausea vomiting or diarrhea. Patient did not have any bowel movement today. Hemoglobin is slightly improved to 7.3 today. GI is planning for capsule endoscopy tomorrow. Otherwise patient denied any complains of chest pain or shortness of breath. No nausea. No headache or dizziness lightheadedness. 09/06/2018 Patient will undergo capsule endoscopy today no evidence of acute GI bleed at this time. Constitutional: Denied any fatigue denied any fever. Cardio vascular: denied any chest pain, palpitations Gastrointestinal denied any nausea vomiting Pulmonary: Denied any shortness of breath cough Neurologic denied any new focal deficits All inpatient medications were reviewed and appropriate changes in these medications as dictated in the interval history and assessment and plan. Objective - Vital Signs Vital signs: Vital Signs Temp 98.1 F 09/06/18 14:51 Pulse 79 09/06/18 14:51 Resp 15 09/06/18 14:51 BP 132/60 09/06/18 14:51 Pulse Ox 98 09/06/18 14:51 Intake & Output 09/05/18 09/06/18 09/06/18 18:59 06:59 18:59 Intake Total 660 280 Balance 660 280 Weight 66.678 kg Intake: IV 100 Potassium Chloride 10 meq 100 In Water For Injection 1 100ml.bag @ 100 mls/hr IVPB Q1H VERO Rx#: [id number] Oral 560 280 Other: # Voids 2 2 2 # Bowel Movements 2 - Exam PHYSICAL EXAMINATION: GENERAL: The patient is alert and oriented x3, not in any acute distress. Well developed, well nourished. HEENT: Pupils are round and equally reacting to light. EOMI. No scleral icterus. Does have conjunctival pallor. Normocephalic, atraumatic. No pharyngeal erythema. No thyromegaly. CARDIOVASCULAR: S1 and S2 present. No murmurs, rubs, or gallops. PULMONARY: Chest is clear to auscultation, no wheezing or crackles. ABDOMEN: Soft, nontender, nondistended, normoactive bowel sounds. No palpable organomegaly. MUSCULOSKELETAL: No joint swelling or deformity. EXTREMITIES: No cyanosis, clubbing, or pedal edema. NEUROLOGICAL: Gross neurological examination did not reveal any focal deficits. SKIN: No rashes. - Labs CBC & Chem 7: 09/06/18 07:08 09/06/18 07:08 Labs: Abnormal Lab Results - Last 24 Hours (Table) 09/05/18 09/05/18 09/06/18 Range/Units 16:55 20:15 07:07 WBC (3.8-10.6) k/uL RBC (3.80-5.40) m/uL Hgb (11.4-16.0) gm/dL Hct (34.0-46.0) % MCHC (31.0-37.0) g/dL RDW (11.5-15.5) % Lymphocytes # (1.0-4.8) k/uL POC Glucose (mg/dL) 131 H 125 H 150 H (75-99) mg/dL 09/06/18 09/06/18 Range/Units 07:08 11:54 WBC 3.6 L (3.8-10.6) k/uL RBC 2.88 L (3.80-5.40) m/uL Hgb 7.5 L (11.4-16.0) gm/dL Hct 24.2 L (34.0-46.0) % MCHC 30.8 L (31.0-37.0) g/dL RDW 22.2 H (11.5-15.5) % Lymphocytes # 0.5 L (1.0-4.8) k/uL POC Glucose (mg/dL) 150 H (75-99) mg/dL Assessment and Plan Plan: Acute blood loss anemia possible GI bleed. Hemoglobin is 6.8. His post 1 unit PRBC. 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
[2018-09-06 16:54] LABS: Glucose,Whole Blood 219 mg/dL (75-99)
[2018-09-06 20:44] LABS: Glucose,Whole Blood 100 mg/dL (75-99)
[2018-09-06] MEDS: ATORVASTATIN 40 MG TAB PO SCH (20:52)
[2018-09-07 07:02] LABS: Glucose,Whole Blood 161 mg/dL (75-99)
[2018-09-07] MEDS: LINAGLIPTIN 5 MG TABLET PO SCH (07:32)
[2018-09-07] MEDS: INSULIN ASPART (NovoLOG) 100 UNIT/ML VIAL SQ SCH ×2 (07:32→12:09)
[2018-09-07] MEDS: PANTOPRAZOLE 40 MG/10 ML VIAL IVP SCH (07:32)
[2018-09-07] MEDS: amLODIPine 10 MG TAB PO SCH (07:32)
[2018-09-07 08:15] VITALS: BP 124/59; PULSE 75; TEMP 98.4
[2018-09-07 08:25] VITALS: RESP 15
[2018-09-07 11:25] LABS: Glucose,Whole Blood 169 mg/dL (75-99)
--- NOTE | 2018-09-07 11:33 | P.PN ---
Subjective Progress Note Date: 09/07/18 Principal diagnosis: Anemia 83-year-old female with a history of hepatic carcinoma status post radiation treatment admitted with weakness nausea anemia. Small ENDOSCOPY SCHEDULED C OMPLETED YESTERDAY. 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 HEMOGLOBIN 7.5 yesterday. Presently denies episodes of hematemesis hematochezia or melena. No abdominal complaints. Objective - Vital Signs Vital signs: Vital Signs Temp 98.4 F 09/07/18 07:39 Pulse 75 09/07/18 08:00 Resp 15 09/07/18 08:00 BP 124/59 09/07/18 07:39 Pulse Ox 97 09/07/18 07:39 Intake & Output 09/06/18 09/07/18 09/07/18 18:59 06:59 18:59 Intake Total 240 320 Balance 240 320 Weight 66.678 kg Intake: IV 40 0.9 @ 20 40 Oral 240 280 Other: Voiding Method Toilet # Voids 2 - Exam General appearance: The patient is alert, oriented, in no acute distress. HET: Head is normocephalic and atraumatic. Pupils are equal and reactive. Oropharynx is clear without lesions. Neck: Supple without lymphadenopathy. Trachea midline. Heart: S1 S2. Regular rate and rhythm. Lungs: No crackles or wheezes are heard. Abdomen: Soft, nontender, nondistended with bowel sounds. No peritoneal signs. No palpable organomegaly or masses. Extremities: Normal skin color and turgor. No cyanosis, rash, ulceration, clubbing, or edema. Radial and pedal pulses are 2/4 bilaterally. Neurological: No focal deficits. Strength and sensation are grossly intact. 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 Differential also includes peptic ulcer disease, erosive esophagitis/gastritis, non-GI source of bleeding which is less likely in the setting of positive stool for occult blood. Current Visit: Yes Status: Acute Code(s): D64.9 - ANEMIA, UNSPECIFIED SNOMED Code(s): 432591877 (2) GI bleed Current Visit: Yes Status: Acute Code(s): K92.2 - GASTROINTESTINAL HEMORRHAGE, UNSPECIFIED SNOMED Code(s): 07211173 Plan: 1. We'll review capsule study and can indicate results. Regular diet. Return to office in 2-3 weeks. Assessment and plan a care discussed with Dr. Wood
--- NOTE | 2018-09-07 15:39 | P.DS ---
Providers Date of admission: 09/02/18 20:28 Attending physician: Gisel Jacobs Consults: 09/02/18 20:28 Consult Physician Routine Consulting Provider: Romario Jeong Consult Reason/Comments: gib Do you want consulting provider notified?: Yes Primary care physician: Ryley Styles [facility] Course: 83-year-old female with a known history of liver cancer and cirrhosis status post radiation, diabetes type 2, hypertension, GERD, history of CVA/TIA and other multiple medical problems was initially presents to [facility] with complaints of generalized weakness and nausea. Patient was also having darker stools. Patient is on iron supplementation. Hemoglobin was 6.8. Due to concerns for GI bleed patient was transferred to [facility] for GI evaluation. Patient is status post 1 unit of PRBC transfusion. Hemoglobin currently improved to 7.7. Patient has hypokalemia and hypomagnesemia which is being replaced. Otherwise patient denied any complaints of chest pain or shortness of breath. Currently denied any abdominal pain. No headache or dizziness or lightheadedness. No leg swelling. No fever no chills. No cough or sputum production. Patient says that her she had EGD and colonoscopy about 2 months ago. Patient is currently on IV fluids and Protonix IV. 09/04/2018 Patient denied any complaints of abdominal pain. No nausea vomiting. Tolerating clear liquid diet. Hemoglobin currently dropped to 7.1 from 7.7 yesterday. Denied any complaints of dizziness or lightheadedness. Denied any dark colored stools. No fever no chills. plus of chest pain or shortness of breath. GI is following. 09/05/2018 Patient denied any complains of abdominal pain. No nausea vomiting or diarrhea. Patient did not have any bowel movement today. Hemoglobin is slightly improved to 7.3 today. GI is planning for capsule endoscopy tomorrow. Otherwise patient denied any complains of chest pain or shortness of breath. No nausea. No headache or dizziness lightheadedness. 09/06/2018 Patient will undergo capsule endoscopy today no evidence of acute GI bleed at this time. 09/07/2018 This evidence of clinical GI bleed at this time patient underwent capsule endoscopy did not show any old blood at AV malformations patient was cleared by gastroenterology and patient can be resumed on Plavix. PHYSICAL EXAMINATION: GENERAL: The patient is alert and oriented x3, not in any acute distress. Well developed, well nourished. HEENT: Pupils are round and equally reacting to light. EOMI. No scleral icterus. Does have conjunctival pallor. Normocephalic, atraumatic. No pharyngeal erythema. No thyromegaly. CARDIOVASCULAR: S1 and S2 present. No murmurs, rubs, or gallops. PULMONARY: Chest is clear to auscultation, no wheezing or crackles. ABDOMEN: Soft, nontender, nondistended, normoactive bowel sounds. No palpable organomegaly. MUSCULOSKELETAL: No joint swelling or deformity. EXTREMITIES: No cyanosis, clubbing, or pedal edema. NEUROLOGICAL: Gross neurological examination did not reveal any focal deficits. SKIN: No rashes. Assessment and Plan Plan: Acute blood loss anemia possible GI bleed. 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 as well as internal hemorrhoids and polyps in the past History of liver cancer status post radiation beads, liver cirrhosis and hepatic steatosis GERD Diabetes type 2 History of CVA/TIA Hypertension History of loop recorder placement and removal one year ago Previous history of smoking Patient Condition at Discharge: Fair Plan - Discharge Summary Discharge Rx Participant: No New Discharge Prescriptions: New Omeprazole [PriLOSEC] 20 mg PO AC-BID #60 cap Albuterol Inhaler [Ventolin Hfa Inhaler] 1 - 2 puff INHALATION Q6HR PRN #1 inhaler PRN Reason: Shortness Of Breath Or Wheezing Doxycycline Monohydrate [Monodox] 100 mg PO BID 7 Days #14 cap Continue Gabapentin [Neurontin] 200 mg PO BID Clopidogrel [Plavix] 75 mg PO DAILY Aspirin EC [Ecotrin Low Dose] 81 mg PO DAILY LORazepam [Ativan] 0.5 mg PO BID PRN PRN Reason: Anxiety Atorvastatin [Lipitor] 40 mg PO HS sitaGLIPtin [Januvia] 50 mg PO DAILY Ondansetron [Zofran] 4 mg PO Q6H PRN PRN Reason: Nausea amLODIPine [Norvasc] 10 mg PO DAILY Ferrous Sulfate [Iron] 325 mg PO DAILY Discontinued hydrALAZINE HCL 10 mg PO BID Chlorthalidone [Hygroton] 25 mg PO DAILY Ranitidine HCl [Zantac] 150 mg PO BID Potassium Chloride ER [K-Dur 20] 20 meq PO DAILY Lisinopril 40 mg PO DAILY Discharge Medication List Gabapentin [Neurontin] 200 mg PO BID 03/12/17 [History] Aspirin EC [Ecotrin Low Dose] 81 mg PO DAILY 06/25/18 [History] Atorvastatin [Lipitor] 40 mg PO HS 06/25/18 [History] Clopidogrel [Plavix] 75 mg PO DAILY 06/25/18 [History] LORazepam [Ativan] 0.5 mg PO BID PRN 06/25/18 [History] Ondansetron [Zofran] 4 mg PO Q6H PRN 06/25/18 [History] sitaGLIPtin [Januvia] 50 mg PO DAILY 06/25/18 [History] Ferrous Sulfate [Iron] 325 mg PO DAILY 09/02/18 [History] amLODIPine [Norvasc] 10 mg PO DAILY 09/02/18 [History] Albuterol Inhaler [Ventolin Hfa Inhaler] 1 - 2 puff INHALATION Q6HR PRN #1 inhaler 09/07/18 [Rx] Doxycycline Monohydrate [Monodox] 100 mg PO BID 7 Days #14 cap 09/07/18 [Rx] Omeprazole [PriLOSEC] 20 mg PO AC-BID #60 cap 09/07/18 [Rx] Follow up Appointment(s)/Referral(s): Ryley Styles MD [Primary Care Provider] - 3 Days (At [place] office [phone] office closed please call to make appointment) Cricket Wood MD [STAFF PHYSICIAN] - 1 Week Patient Instructions/Handouts: Gastrointestinal Bleeding (ED) Discharge Disposition: HOME SELF-CARE
[2018-09-07 20:40] LABS: Hemoglobin A1C 7.6 % (4.0-6.0)
== END 2018-09-07 15:30 | disposition home or self-care (01) | DRG 378 ==
LOC: EC 19:48 → 4SSUR 20:28
PROVIDERS: ADMIT Hospitalist; ATTEND Hospitalist
PROC: 30233N1 Transfusion of Nonautologous Red Blood Cells into Peripheral Vein, Percutaneous Approach (ICD-10-PCS; principal; 2018-09-02)
DX: K55.21 Angiodysplasia of colon with hemorrhage (principal); D62 Acute posthemorrhagic anemia; E11.9 Type 2 diabetes mellitus without complications; E83.42 Hypomagnesemia; E87.6 Hypokalemia; I10 Essential (primary) hypertension; K21.9 Gastro-esophageal reflux disease without esophagitis; K64.8 Other hemorrhoids; K74.60 Unspecified cirrhosis of liver; K76.0 Fatty (change of) liver, not elsewhere classified; Z79.02 Long term (current) use of antithrombotics/antiplatelets; Z79.82 Long term (current) use of aspirin; Z79.84 Long term (current) use of oral hypoglycemic drugs; Z79.899 Other long term (current) drug therapy; Z82.49 Family history of ischemic heart disease and other diseases of the circulatory system; Z82.5 Family history of asthma and other chronic lower respiratory diseases; Z85.05 Personal history of malignant neoplasm of liver; Z86.73 Personal history of transient ischemic attack (TIA), and cerebral infarction without residual deficits; Z87.442 Personal history of urinary calculi; Z87.891 Personal history of nicotine dependence; Z90.710 Acquired absence of both cervix and uterus; Z92.3 Personal history of irradiation; Z88.5 Allergy status to narcotic agent; Z88.0 Allergy status to penicillin; Z90.49 Acquired absence of other specified parts of digestive tract; Z95.0 Presence of cardiac pacemaker
CPT/HCPCS: 80048; 80053; 82272; 83036; 83690; 83735; 84132; 84484; 85025; 85610; 85730; 86850; 86900; 86901; 86920; 91110; 93005; 96361; 96374; 99285

== ENCOUNTER → 2020-07-04 | Outpatient (CLI) | payer MEDICARE, OTHER ==
[2020-07-04 13:39] LABS: Albumin 3.9 g/dL (3.5-5.0); Calcium 9.8 mg/dL (8.4-10.2); Potassium 4.3 mmol/L (3.5-5.1); Total Bilirubin 0.8 mg/dL (0.2-1.3); Total Protein 7.2 g/dL (6.3-8.2)
--- NOTE | 2020-07-04 15:49 | CT ---
History severe EXAMINATION TYPE: CT abdomen wo/w con DATE OF EXAM: 07/04/2020 COMPARISON: Outside MRI studies HISTORY: Follow up liver cancer. Submitted form indicates a liver transplant CT DLP: 675.3 mGycm CONTRAST: CT scan of the abdomen is performed with Oral Contrast and with IV Contrast, patient injected with 10 0 mL of Isovue 300. FINDINGS: LUNG BASES-: No visible nodule. No infiltrate. LIVER/GB: There is evidence of liver transplant. Gallbladder is not evident. There is free fluid maite cent to the liver edge. The liver demonstrates a nodular contour which may reflect underlying cirrhos is. No hepatic mass is appreciated. PANCREAS: No inflammation. No distinct mass. Atrophic changes of the pancreas. SPLEEN: No splenic enlargement. No lesion seen. The spleen is noted about the liver edge. ADRENALS: No nodule. No thickening. KIDNEYS/BLADDER: No hydronephrosis. No nephrolithiasis. Renal cystic changes. Urinary bladder gross ly unremarkable. BOWEL: Visualized bowel loops are of normal caliber. Moderate fecal stasis as visualized. LYMPH NODES: No greater than 1cm abdominal or pelvic lymph nodes are appreciated. AORTA: No significant abnormality. OSSEOUS STRUCTURES: No significant abnormality is seen. OTHER: No significant additional abnormality is seen. IMPRESSION: 1. Changes of the liver transplant. The liver is somewhat nodular in appearance and this could reflec t underlying cirrhosis. No hepatic masses seen. 2. Upper abdominal ascites.
== END | disposition home or self-care (01) ==
LOC: RADCTMAIN 12:24
PROVIDERS: ATTEND Internal Medicine Hepatology
DX: Z94.4 Liver transplant status (principal); K76.9 Liver disease, unspecified; R18.8 Other ascites
CPT/HCPCS: 80053; 74170; 36415; Q9967

== ENCOUNTER 2021-01-30 12:17 | Day surgery (SDC) | payer MEDICARE, OTHER ==
[2021-01-30 13:14] LABS: Mean Platelet Volume 7.8; Platelet Count 187 k/uL (150-450)
[2021-01-30 13:17] VITALS: TEMP 98.5
[2021-01-30 13:36] LABS: INR 0.9 (<1.2); Prothrombin Time 10.1 sec (9.0-12.0)
[2021-01-30 13:56] VITALS: BP 159/71; PULSE 63; RESP 16
--- NOTE | 2021-01-30 14:42 | US ---
Discontinued paracentesis HISTORY: Abdominal pain Real-time ultrasound and the right and left hemiabdomen shows no significant fluid accumulation impression: Discontinued paracentesis, no fluid is identified on ultrasound
== END 2021-01-30 14:25 | disposition home or self-care (01) ==
LOC: RADPROMAIN 12:17
PROVIDERS: ATTEND Internal Medicine Gastroenterology
DX: R18.8 Other ascites (principal); Z53.8 Procedure and treatment not carried out for other reasons
CPT/HCPCS: 36415; 76705; 82565; 82947; 85049; 85610

== ENCOUNTER 2021-06-03 12:26 | Day surgery (SDC) | payer MEDICARE, OTHER ==
[2021-06-03 13:09] LABS: Mean Platelet Volume 8.7; Platelet Count 199 k/uL (150-450)
[2021-06-03 13:20] LABS: Prothrombin Time 11.1 sec (9.0-12.0)
[2021-06-03 13:40] VITALS: RESP 16; TEMP 97.8
[2021-06-03] MEDS: ALBUMIN HUMAN 25% 50 ML in EMPTY BAG 1 BAG IVPB SCH ×2 (14:09→14:10)
[2021-06-03 14:23] VITALS: BP 143/65; PULSE 91
--- NOTE | 2021-06-03 15:10 | US ---
Ultrasound-guided paracentesis. DATE OF EXAM: 06/03/2021 CLINICAL HISTORY: Ascites The procedure was discussed with the patient. The risks, complications, benefits, and alternatives we re discussed and any questions were answered. Informed consent was obtained. The patient was placed s upine on the ultrasound table and prepped and draped in the usual sterile fashion. All elements of maximal barrier technique were utilized. Under ultrasound guidance, access into the right lower quadrant was obtained, via the paracentesis catheter system and direct ultrasound guidanc e. Approximately 2.3 liters of straw-colored fluid was removed. The patient was stable throughout the pr ocedure and remained stable upon discharge from Department of Radiology. IMPRESSION: Successful paracentesis under ultrasound guidance.
[2021-06-04 05:18] LABS: Appearance,BF Cloudy
== END 2021-06-03 14:53 | disposition home or self-care (01) ==
LOC: RADPROMAIN 12:26
PROVIDERS: ATTEND Internal Medicine Gastroenterology
DX: R18.8 Other ascites (principal)
CPT/HCPCS: 36415; 49083; 82042; 82565; 82947; 84157; 85049; 85610; 88108; 88305; 89050